=== PATIENT | male | born 1940 | race Caucasian/White ===

== ENCOUNTER 2018-07-12 08:46 | Outpatient (CLI) | payer OTHER, SELFPAY ==
[2018-07-12 10:17] LABS: CREATININE 1.05 mg/dL (0.70-1.30); Glucose 105 mg/dL (70-100); Potassium 4.3 mmol/L (3.5-5.1)
== END 2018-07-12 09:06 ==
PROVIDERS: PCP General Practice; Visit Provider General Practice
DX: I10 Essential (primary) hypertension (principal); R73.01 Impaired fasting glucose
CPT/HCPCS: 36415; 82947; 82565; 84132

== ENCOUNTER 2018-07-25 10:39 | Outpatient (CLI) | payer OTHER, SELFPAY ==
[2018-07-25 11:57] LABS: Hemoglobin A1C 5.3 % (4.5-6.2)
== END 2018-07-25 10:59 ==
PROVIDERS: PCP General Practice; Visit Provider General Practice
DX: R73.09 Other abnormal glucose (principal)
CPT/HCPCS: 36415; 83036

== ENCOUNTER 2019-01-26 08:13 | Outpatient (CLI) | payer OTHER, SELFPAY ==
[2019-01-26 10:11] LABS: Calculated LDL 99 mg/dL; Cholesterol 179 mg/dL (50-200); HDL Cholesterol 74 mg/dL (40-60); Triglyceride 34 mg/dL (30-150)
== END 2019-01-26 08:33 ==
PROVIDERS: PCP General Practice; Visit Provider General Practice
DX: I73.89 Other specified peripheral vascular diseases (principal); R73.09 Other abnormal glucose; I10 Essential (primary) hypertension
CPT/HCPCS: 36415; 80061; 83721

== ENCOUNTER 2019-06-05 10:54 | Outpatient (CLI) | payer OTHER, SELFPAY ==
[2019-06-05 12:31] LABS: HCT 38.4 % (40.0-50.0); HGB 12.8 g/dL (13.5-17.5); Mean Corp. HGB Concentration 33.3 g/dL (32.0-36.0); Mean Corpuscular Hemoglobin 32.2 pg (27.0-33.0); Mean Corpuscular Volume 96.7 fL (80-95); Platelet Count 196 x1000/uL (130-400); RBC 3.97 m/cumm (4.50-6.00); RBC Distribution Width 13.9 % (11.8-14.1)
[2019-06-05 13:59] LABS: ALT 21 U/L (16-63); AST 15 U/L (15-37); Albumin 3.4 g/dL (3.4-5.0); Alkaline Phosphatase 58 U/L (46-116); Anion Gap 7.4 mmol/L (3-11); BUN 18 mg/dL (7-18); Bilirubin, Total 0.4 mg/dL (0.2-1.0); CO2 26.6 mmol/L (21.0-32.0); CREATININE 0.99 mg/dL (0.70-1.30); Calcium 8.8 mg/dL (8.5-10.1); Chloride 108 mmol/L (98-107); Glucose 90 mg/dL (74-106); Potassium 4.9 mmol/L (3.5-5.1); Sodium 142 mmol/L (136-145); Total Protein 6.9 g/dL (6.4-8.2)
== END 2019-06-05 11:14 ==
PROVIDERS: PCP Family Medicine; Visit Provider Family Medicine
DX: I73.9 Peripheral vascular disease, unspecified (principal); I10 Essential (primary) hypertension; M35.3 Polymyalgia rheumatica; R73.03 Prediabetes
CPT/HCPCS: 36415; 80053; 85027

== ENCOUNTER 2019-11-28 01:44 | Outpatient (CLI) | payer OTHER, SELFPAY ==
[2019-11-28 09:44] LABS: Abs Immature Grans 0.04 k/cumm (0.0-0.09); Absolute Basophil Count 0.02 k/cumm (0.0-0.2); Absolute Eosinophil Count 0.14 k/cumm (0.0-0.7); Absolute Lymphocyte Count 1.77 k/cumm (1.2-3.4); Absolute Monocyte Count 0.54 k/cumm (0.11-0.7); Absolute Neutrophil Count 3.84 k/cumm (1.2-6.7); Basophils % 0.3; Eosinophils % 2.2; HCT 39.4 % (40.0-50.0); HGB 13.3 g/dL (13.5-17.5); Immature Grans % 0.6 %; Lymphocytes % 27.9; Mean Corp. HGB Concentration 33.8 g/dL (32.0-36.0); Mean Corpuscular Hemoglobin 32.4 pg (27.0-33.0); Mean Corpuscular Volume 96.1 fL (80-95); Mean Platelet Volume 9.1 fL (8.0-11.0); Monocytes % 8.5; Neutrophils % 60.5; Platelet Count 200 x1000/uL (130-400); RBC Distribution Width 13.8 % (11.8-14.1); White Blood Cell Count 6.35 k/cumm (4.4-10.8)
[2019-11-28 10:43] LABS: BUN 15 mg/dL (7-18); CREATININE 1.11 mg/dL (0.70-1.30); Calcium 8.9 mg/dL (8.5-10.1); Chloride 104 mmol/L (98-107); Glucose 107 mg/dL (74-106); Potassium 4.3 mmol/L (3.5-5.1); Sodium 138 mmol/L (136-145)
[2019-11-28 10:50] LABS: Hemoglobin A1C 5.5 % (3.8-5.6)
[2019-11-28 11:09] LABS: ESR 33 mm/hr (1-20)
== END 2019-11-28 02:04 ==
PROVIDERS: PCP Family Medicine; Visit Provider Family Medicine
DX: I10 Essential (primary) hypertension (principal); R73.03 Prediabetes; M35.3 Polymyalgia rheumatica
CPT/HCPCS: 36415; 80048; 85652; 83036; 85025

== ENCOUNTER → 2022-01-01 14:11 | Outpatient (BNVA) | payer OTHER, SELFPAY | PROVIDERS: PCP Nurse Practitioner Family; Referring Provider Nurse Practitioner Family; Visit Provider Physical Therapy Assistant | DX: L02.215 Cutaneous abscess of perineum (principal) | CPT/HCPCS: 99203 ==

== ENCOUNTER → 2022-01-06 13:28 | Outpatient (BNVA) | payer MEDICARE, SELFPAY | PROVIDERS: PCP Nurse Practitioner Family; Referring Provider Nurse Practitioner Family; Visit Provider Physical Therapy Assistant | DX: L02.215 Cutaneous abscess of perineum (principal) | CPT/HCPCS: 99214 ==

== ENCOUNTER → 2022-01-13 13:32 | Outpatient (BNVA) | payer MEDICARE, SELFPAY | PROVIDERS: PCP Nurse Practitioner Family; Referring Provider Nurse Practitioner Family; Visit Provider Physical Therapy Assistant | DX: L72.9 Follicular cyst of the skin and subcutaneous tissue, unspecified (principal); L02.215 Cutaneous abscess of perineum | CPT/HCPCS: 99213 ==

== ENCOUNTER → 2022-01-14 09:10 | Outpatient (CLI) | payer MEDICARE, SELFPAY ==
--- NOTE | 2022-01-14 08:00 | DI.US_ITS ---
Exam(s) US SOFT TISS BUTTOCK/PERINEUM EXAM: US SOFT TISS BUTTOCK/PERINEUM CLINICAL HISTORY: cyst vs. abscess vs. enlarged lymph node,L02.91. TECHNIQUE: Ultrasound was performed using standard protocol. COMPARISON: No exams were available for comparison FINDINGS: Sonographic assessment utilizing grayscale and color Doppler imaging was performed and targeted to th e area of clinical concern. The area of the palpable abnormality corresponds to an ovoid hypoechoic subcutaneous lesion measuring 1.8 by 0.3 by 1.7 cm. There is associated hyperemia. The findings are likely infectious. It does not appear to be simple fluid. IMPRESSION: Subcutaneous collection with hyperemia consistent with a small abscess. DATA REPOSITORY:
== END ==
PROVIDERS: PCP Nurse Practitioner Family; Visit Provider Physical Therapy Assistant
DX: L02.31 Cutaneous abscess of buttock (principal)
CPT/HCPCS: 76857

== ENCOUNTER → 2022-01-20 13:27 | Outpatient (BNVA) | payer MEDICARE, SELFPAY | PROVIDERS: PCP Nurse Practitioner Family; Referring Provider Nurse Practitioner Family; Visit Provider Physical Therapy Assistant | DX: L02.215 Cutaneous abscess of perineum (principal) | CPT/HCPCS: 10060 ==

== ENCOUNTER → 2022-01-28 13:31 | Outpatient (BNVA) | payer MEDICARE, SELFPAY | PROVIDERS: PCP Nurse Practitioner Family; Referring Provider Nurse Practitioner Family; Visit Provider Surgery | DX: Z48.02 Encounter for removal of sutures (principal); L02.215 Cutaneous abscess of perineum ==

== ENCOUNTER 2022-08-06 03:02 | Outpatient (CLI) | payer MEDICARE, SELFPAY ==
[2022-08-06 12:43] LABS: HCT 38.8 % (40.0-50.0); MCH 32.6 pg (27.0-33.0); MCHC 33.5 % (32.0-36.0); MCV 97 fL (80-95); MPV 10.2 fL (8.0-11.0); Platelet Count 156 10^3/uL (130-400); RBC 3.99 10^6/uL (4.36-5.78); RDW 13.3 % (11.8-14.1); RDW-SD 47.8 fL
== END 2022-08-06 03:03 | disposition home or self-care (01) ==
LOC: LOS 03:02
PROVIDERS: PCP Nurse Practitioner Family; Visit Provider Nurse Practitioner Family
DX: I82.412 Acute embolism and thrombosis of left femoral vein; Z79.01 Long term (current) use of anticoagulants
CPT/HCPCS: 36415; 85027

== ENCOUNTER 2023-02-08 02:32 | Outpatient (CLI) | payer MEDICARE, SELFPAY ==
[2023-02-09 10:59] LABS: Lyme Ab w Rflx to Lyme Confirm Negative (Negative)
[2023-02-11 12:17] LABS: Anaplasma phagocytophilum Negative (Negative); B. miyamotoi PCR Negative (Negative); Babesia divergens/MO-1 Negative (Negative); Babesia duncani Negative (Negative); Babesia microti Negative (Negative); Ehrlichia chaffeensis Negative (Negative); Ehrlichia ewingii/canis Negative (Negative); Ehrlichia muris eauclairensis Negative (Negative)
== END 2023-02-08 02:33 | disposition home or self-care (01) ==
LOC: LBO 02:32
PROVIDERS: Nurse Practitioner Family; PCP Nurse Practitioner Family; Visit Provider Nurse Practitioner Family
DX: T14.8XXA Other injury of unspecified body region, initial encounter; W57.XXXA Bitten or stung by nonvenomous insect and other nonvenomous arthropods, initial encounter
CPT/HCPCS: 36415; 87798; 86618

== ENCOUNTER 2023-09-10 02:14 | Outpatient (CLI) | payer MEDICARE, SELFPAY ==
[2023-09-10 09:29] LABS: HCT 40.1 % (40.0-50.0); HGB 13.5 g/dL (13.5-17.5); MCH 32.5 pg (27.0-33.0); MCHC 33.7 % (32.0-36.0); MCV 96 fL (80-95); MPV 9.7 fL (8.0-11.0); Platelet Count 143 10^3/uL (130-400); RBC 4.16 10^6/uL (4.36-5.78); RDW 13.8 % (11.8-14.1); RDW-SD 48.9 fL; WBC 5.59 10^3/uL (4.4-10.8)
[2023-09-10 09:59] LABS: Hemoglobin A1C 5.5 % (<5.7)
[2023-09-10 10:15] LABS: Calculated LDL 90 mg/dL (<100); Cholesterol 189 mg/dL (<200); HDL Cholesterol 93 mg/dL (40-60); Triglyceride 31 mg/dL (<150)
== END 2023-09-10 02:15 | disposition home or self-care (01) ==
LOC: LBO 02:15
PROVIDERS: PCP Nurse Practitioner Family; Visit Provider Nurse Practitioner Family
DX: I73.9 Peripheral vascular disease, unspecified (principal); D64.9 Anemia, unspecified; Z13.1 Encounter for screening for diabetes mellitus
CPT/HCPCS: 80061; 85027; 83036

== ENCOUNTER 2023-10-29 12:52 | Inpatient (IN) | payer MEDICARE, SELFPAY ==
[2023-10-29] VITALS (41 sets, daily range): BP systolic 115–176; BP diastolic 48–75; PULSE 50–97; RESP 11–28; TEMP 36–37.3; O2SAT 37–100
--- NOTE | 2023-10-29 12:30 | RT.EKG_ITS ---
APPROVED REPORT Exam: Resting ECG Reason for Exam: chest pain Patient Location: E HR:89 bpm ECG Measurements Heart Rate 89 AXIS AR 191 P 69 QRSd 111 QRS -32 QT 387 T 92 QTc 472 Conclusion Sinus rhythm...normal P axis, V-rate 60- 99 Left atrial enlargement...P, P'>60mS, <-0.15mV V1 Left axis deviation...QRS axis (-30,-90) Repol abnrm suggests ischemia, diffuse leads...ST-T neg, ant/lat/inf
[2023-10-29 13:20] LABS: Abs Immature Grans 0.04 10^3/uL (0.0-0.06); Absolute Basophil Count 0.02 10^3/uL (0.0-0.2); Absolute Eosinophil Count 0.02 10^3/uL (0.0-0.7); Absolute Lymphocyte Count 0.56 10^3/uL (1.2-3.4); Absolute Monocyte Count 0.27 10^3/uL (0.1-0.8); Absolute Neutrophil Count 5.69 10^3/uL (1.2-6.7); Basophils % 0.3 %; Eosinophils % 0.3 %; HCT 36.9 % (40.0-50.0); HGB 12.6 g/dL (13.5-17.5); Immature Grans % 0.6 %; Lymphocytes % 8.5 %; MCH 32.4 pg (27.0-33.0); MCHC 34.1 % (32.0-36.0); MCV 95 fL (80-95); MPV 9.7 fL (8.0-11.0); Monocytes % 4.1 %; Neutrophils % 86.2 %; Platelet Count 157 10^3/uL (130-400); RBC 3.89 10^6/uL (4.36-5.78); RDW 13.7 % (11.8-14.1); RDW-SD 47.3 fL
[2023-10-29 13:28] LABS: ALT 27 U/L (16-63); AST 22 U/L (15-37); Albumin 3.5 g/dL (3.4-5.0); Alkaline Phosphatase 183 U/L (46-116); Anion Gap 11.5 mmol/L (3-11); BUN 13 mg/dL (7-18); Bilirubin, Total 0.7 mg/dL (0.2-1.0); CO2 21.5 mmol/L (21.0-32.0); Calcium 8.8 mg/dL (8.5-10.1); Chloride 102 mmol/L (98-107); Estimated GFR 75.14 (mL/min/1.73m2); Glucose 114 mg/dL (74-106); Magnesium 1.8 mg/dL (1.8-2.4); Potassium 4.2 mmol/L (3.5-5.1); Sodium 135 mmol/L (136-145)
[2023-10-29 13:29] LABS: Troponin I 128 ng/L (< or =60)
--- NOTE | 2023-10-29 14:00 | DI.CT_ITS ---
Exam(s) CT CHEST PE CTA EXAM: CT CHEST PE CTA CLINICAL HISTORY: shortness of breath. TECHNIQUE: Imaging Protocol: Axial CT angiography was performed with multi-slice acquisition and mu lti-planar and/or 3D reconstructions. CONTRAST MATERIAL: Intravenous: Omnipaque 350 contrast volume:85 mL COMPARISON: CT ABD PELVIS WITH CONTRAST from 06/28/2016 FINDINGS: Tracheobronchial tree: Patent where visualized. Pulmonary parenchyma: No focal consolidating infiltrates are seen. There is mild thickening of the i nterstitium particularly peripherally. This may represent interstitial edema or pneumonitis. No arc hitectural distortion. Pulmonary Arteries: There are filling defects in branches of the pulmonary artery to the right lower lobe (series 7, image 357). No saddle embolus is seen. Mediastinum and Kami: No dominant adenopathy or fluid collection. The esophagus is unremarkable. Visualized thyroid gland: Unremarkable. Pleura: No pneumothorax. Mild pleural thickening or tiny pleural effusions are seen bilaterally. Heart: Cardiomegaly. RV to LV ratio is less than 1. Coronary artery calcification is present. No pe ricardial effusion. Aorta: Thoracic aorta non-dilated. No evidence of dissection. Atherosclerotic calcification is presen t. Upper abdomen: Stable hepatic cyst. Soft tissues: Unremarkable. Bones: Within normal limits for the patient's age.There are old left rib fractures. There is a scler otic focus in the T6 vertebral body. IMPRESSION: 1. Pulmonary embolism in a branch of the right lower lobe. No evidence of heart strain. 2. Mild interstitial thickening in the lungs which may represent interstitial edema or pneumonitis. Please correlate clinically. 3. Nonspecific sclerotic focus in the T6 vertebral body. If there is a history of or concern for can cer, bone scan should be considered for further evaluation. 4. Findings were discussed with Dr. Shi at 3:29 p.m. on 10/29/2023. RADIATION DOSE DELIVERED: 394.27mGy.cm Total DLP DATA REPOSITORY: All CT scans at this facility are submitted to the National Radiology Data Registry (NRDR) Dose Index Registry (DIR) with the [employer] (A[employer]). RADIATION OPTIMIZATION: All CT scans at this facility use at least one of these dose optimization te chniques: automated exposure control; mA and/or kV adjustment per patient size (includes targeted exa ms where dose is matched to clinical indication); or iterative reconstruction.
--- NOTE | 2023-10-29 14:18 | W.ED.GENAD ---
Discharge Plan Disposition Patient Disposition: Admit to [facility] Condition: Critical Discharge Details Clinical Impression: Acute non-ST elevation myocardial infarction (NSTEMI), Pulmonary embolism Admit Date/Time: 10/29/23 16:52 Admit Provider: Js Jameson Attending Provider: Js Jameson Primary Care Provider: Natanael Silverio ED Provider: Stefan Shi General Mode of arrival: ambulatory. Date/Time Provider Initiated Documentation: 10/29/23 13:01. Limitations to Documentation: no limitations. Information obtained by: patient. HPI Narrative: 83-year-old male with history of PMR, hypertension, DVT, on Eliquis, family history of early coronary artery disease, here with chief complaint of shortness of breath. Patient notes he has had intermittent chest tightness for a couple days, worse today. He describes it as a tightness. He had associated shortness of breath with dyspnea on exertion and presyncope. He states he feels out of whack today. Patient notes chest discomfort has resolved at this point. He has no leg swelling or calf pain. No abdominal pain. Related Data Home Medications Medication Instructions Recorded Confirmed omega-3 fatty acids-fish oil 360 1,200 mg PO BID 11/15/13 10/29/23 mg-1,200 mg capsule vitamins A,C,X-stxa-exwpmw 2,148 2 tab PO BID 09/01/21 10/29/23 mcg-113 mg-45 mg-17.4 mg tablet doxazosin 1 mg tablet 0.5 mg (1/2 x 1 mg) PO BID #90 tabs 04/07/23 10/29/23 allopurinol 300 mg tablet 300 mg PO DAILY #90 tabs 05/17/23 10/29/23 enalapril maleate 20 mg tablet 20 mg PO BID #180 tabs 06/30/23 10/29/23 apixaban 2.5 mg tablet (Eliquis) 2.5 mg PO BID #180 tabs 07/07/23 10/29/23 prednisone 1 mg tablet 4 mg (4 x 1 mg) PO DAILY #360 tabs 08/20/23 10/29/23 Previous Rx's Medication Instructions Recorded doxazosin 1 mg tablet 0.5 mg (1/2 x 1 mg) PO BID #90 tabs 04/07/23 allopurinol 300 mg tablet 300 mg PO DAILY #90 tabs 05/17/23 enalapril maleate 20 mg tablet 20 mg PO BID #180 tabs 06/30/23 apixaban 2.5 mg tablet (Eliquis) 2.5 mg PO BID #180 tabs 07/07/23 prednisone 1 mg tablet 4 mg (4 x 1 mg) PO DAILY #360 tabs 08/20/23 Allergies Allergy/AdvReac Type Severity Reaction Status Date / Time No Known Allergies Allergy Verified 10/29/23 13:22 General Stated Complaint: Dizzy/Sync RITCHIE: 3 Review of Systems All systems reviewed & are unremarkable except as noted in HPI and below Constitutional Constitutional: Denies fever(s) Cardiovascular Cardiovascular: Reports as per HPI Respiratory Respiratory: Reports as per HPI Exam Const General: cooperative and no acute distress HENMT Mouth: moist mucous membranes Eyes Conjunctivae: normal conjunctivae Sclera: normal sclerae Neck Neck: trachea midline and supple Resp Auscultation: clear to auscultation bilaterally, no rales, no rhonchi and no wheezes Cardio Rate: regular rate and not tachycardic Rhythm: regular rhythm GI Palpation: soft, not firm, no guarding, no masses, not rigid and nontender Skin General skin exam: no rashes or lesions noted Neuro General: patient alert, patient awake, patient oriented x3 and tone normal Extrem General: no calf tenderness and no edema Psych Appearance: grossly normal Mental Status: mental status grossly normal Speech and Movement: speech and movement normal Course Vital Signs Vital signs: Vital Signs Temperature 36.6 C 10/29/23 12:53 Pulse 86 10/29/23 12:53 Respiratory Rate 16 10/29/23 12:53 Blood Pressure 172/75 H 10/29/23 12:53 Pulse Oximetry 99 10/29/23 12:53 Temperature 36.6 C 10/29/23 12:53 Temperature Source Tympanic 10/29/23 12:53 Pulse 70 10/29/23 13:46 Pulse 78 10/29/23 13:50 Respiratory Rate 15 10/29/23 13:50 Respiratory Effort Short of Breath 10/29/23 13:12 Respiratory Depth Normal 10/29/23 13:12 Respiratory Pattern Normal 10/29/23 13:12 Blood Pressure 154/56 H 10/29/23 13:46 Blood Pressure Mean 93 10/29/23 13:46 Blood Pressure Position Sitting 10/29/23 12:53 Pulse Oximetry 97 10/29/23 13:50 Oxygen Delivery Method Room Air 10/29/23 12:53 Oxygen Flow Rate 0 10/29/23 12:53 Pain Level 3 10/29/23 12:53 Lab/Test Results Lab/Test Results: Laboratory Tests Range/Units 10/29/23 13:00 WBC (4.4-10.8) 10^3/uL 6.60 RBC (4.36-5.78) 10^6/uL 3.89 L Hgb (13.5-17.5) g/dL 12.6 L Hct (40.0-50.0) % 36.9 L MCV (80-95) fL 95 MCH (27.0-33.0) pg 32.4 MCHC (32.0-36.0) % 34.1 RDW (11.8-14.1) % 13.7 Plt Count (130-400) 10^3/uL 157 MPV (8.0-11.0) fL 9.7 Immature Gran % % 0.6 Neutrophils % % 86.2 Lymphocytes % % 8.5 Monocytes % % 4.1 Eosinophils % % 0.3 Basophils % % 0.3 Nucleated RBC % (0.0-0.3) % 0.0 Absolute Neutrophils (1.2-6.7) 10^3/uL 5.69 Absolute Lymphocytes (1.2-3.4) 10^3/uL 0.56 L Absolute Monocytes (0.1-0.8) 10^3/uL 0.27 Absolute Eosinophils (0.0-0.7) 10^3/uL 0.02 Absolute Basophils (0.0-0.2) 10^3/uL 0.02 Sodium (136-145) mmol/L 135 L Potassium (3.5-5.1) mmol/L 4.2 Chloride (98-107) mmol/L 102 Carbon Dioxide (21.0-32.0) mmol/L 21.5 Anion Gap (3-11) mmol/L 11.5 H BUN (7-18) mg/dL 13 Creatinine (0.70-1.30) mg/dL 1.0 Est GFR (CKD-EPI 2020) (mL/min/1.73m2) 75.14 Glucose (74-106) mg/dL 114 H Calcium (8.5-10.1) mg/dL 8.8 Magnesium (1.8-2.4) mg/dL 1.8 Total Bilirubin (0.2-1.0) mg/dL 0.7 AST (15-37) U/L 22 ALT (16-63) U/L 27 Alkaline Phosphatase (46-116) U/L 183 H Troponin I (< or =60) ng/L 128 H* Total Protein (6.4-8.2) g/dL 7.0 Albumin (3.4-5.0) g/dL 3.5 Medical Decision Making 1425 -- 83-year-old male with history of PMR, DVT on Eliquis, hypertension, family history of coronary artery disease, here with chest discomfort, dyspnea on exertion and presyncope today. Symptoms now resolved. Has had intermittent symptoms over the past few days. Patient is saturating well and in no respiratory distress. He is hypertensive. Screening EKG was reviewed and interpreted by me: Please report, sinus rhythm, left atrial enlargement, left axis deviation, concern for ST depression laterally. ST depression is new compared to prior EKG on record from 2018. Concern for ACS. Initial troponin elevated at 128. Patient is currently anticoagulated. He does not have pain at this time. Consider ACS versus pulmonary embolism versus arrhythmia. Plan to obtain CT of the chest given history and symptoms. Plan to trend troponin. 1545 --CT chest was interpreted by radiology: 1. Pulmonary embolism in a branch of the right lower lobe. No evidence of heart strain. 2. Mild interstitial thickening in the lungs which may represent interstitial edema or pneumonitis. Please correlate clinically. 3. Nonspecific sclerotic focus in the T6 vertebral body. If there is a history of or concern for cancer, bone scan should be considered for further evaluation. 4. Findings were discussed with Dr. Shi at 3:29 p.m. on 10/29/2023. Repeat EKG shows worsening ST depression laterally and now extending into I, aVL and V3. 1600--I contacted [facility] [place] to request transfer and was notified by transfer nurse that department is unable to accept patient today as no capacity. I contacted [facility] transfer center to request transfer and awaiting callback 1604 --repeat troponin 332. Plan to initiate heparin, no bolus, and aspirin. 1620 --I spoke with Dr. Slaughter at [facility], discussed ED presentation and course, he agrees with current treatment plan, he will accept the patient in transfer, he notes currently they are at capacity but will list as urgent and expect to be transferred within a day. 1635 --[facility] return call noting that they now could not accept the patient in transfer due to capacity. I have called [facility] [place] back to request transfer and awaiting callback. -- I spoke with Dr. Jameson, discussed ED presentation course, he will admit the patient and request that accepting physician to be identified. Awaiting callback from [facility]. Lab Data Lab results reviewed: Yes I reviewed the patient's lab results. Labs: Laboratory Tests Range/Units 10/29/23 10/29/23 13:00 15:40 WBC (4.4-10.8) 10^3/uL 6.60 RBC (4.36-5.78) 10^6/uL 3.89 L Hgb (13.5-17.5) g/dL 12.6 L Hct (40.0-50.0) % 36.9 L MCV (80-95) fL 95 MCH (27.0-33.0) pg 32.4 MCHC (32.0-36.0) % 34.1 RDW (11.8-14.1) % 13.7 Plt Count (130-400) 10^3/uL 157 MPV (8.0-11.0) fL 9.7 Immature Gran % % 0.6 Neutrophils % % 86.2 Lymphocytes % % 8.5 Monocytes % % 4.1 Eosinophils % % 0.3 Basophils % % 0.3 Nucleated RBC % (0.0-0.3) % 0.0 Absolute Neutrophils (1.2-6.7) 10^3/uL 5.69 Absolute Lymphocytes (1.2-3.4) 10^3/uL 0.56 L Absolute Monocytes (0.1-0.8) 10^3/uL 0.27 Absolute Eosinophils (0.0-0.7) 10^3/uL 0.02 Absolute Basophils (0.0-0.2) 10^3/uL 0.02 Sodium (136-145) mmol/L 135 L Potassium (3.5-5.1) mmol/L 4.2 Chloride (98-107) mmol/L 102 Carbon Dioxide (21.0-32.0) mmol/L 21.5 Anion Gap (3-11) mmol/L 11.5 H BUN (7-18) mg/dL 13 Creatinine (0.70-1.30) mg/dL 1.0 Est GFR (CKD-EPI 2020) (mL/min/1.73m2) 75.14 Glucose (74-106) mg/dL 114 H Calcium (8.5-10.1) mg/dL 8.8 Magnesium (1.8-2.4) mg/dL 1.8 Total Bilirubin (0.2-1.0) mg/dL 0.7 AST (15-37) U/L 22 ALT (16-63) U/L 27 Alkaline Phosphatase (46-116) U/L 183 H Troponin I (< or =60) ng/L 128 H* 332 H* Total Protein (6.4-8.2) g/dL 7.0 Albumin (3.4-5.0) g/dL 3.5 Quality:SDOH Health Related Social Needs: No Data to Display Critical Care Time Critical Care Time Critical Care Time: Yes Total Critical Care Time: 40 Attestation: I spent greater than 40 minutes addressing this patient's immediate life threats. Please see MDM section of note. This time was spent engaged in work directly related to the patient's care, exclusive of separate procedures, and failure to initiate these interventions would have likely resulted in clinically significant or life threatening deterioration in the patient's condition. PFSH All Active Problems (Updated 10/29/23 @ 16:22 by Stefan Shi MD) Pulmonary embolism (Chronic) Acute non-ST elevation myocardial infarction (NSTEMI) (Acute) Right foot pain (Acute) Anemia (Chronic) Right hip pain (Acute) Chronic anticoagulation (Acute) Ventral hernia (Acute) Skin lesions, generalized (Acute) Liver palpable (Acute) US negative in 2006 Peripheral artery disease (Acute) asymptomatic Recurrent deep vein thrombosis (DVT) (Acute) PMR (polymyalgia rheumatica) (Acute) Family history of early CAD (Acute) Peripheral neuropathy (Acute) Medical History Neck mass (10/07/15) Peripheral vascular disease Surgical History S/P right knee arthroscopy S/P appendectomy Incision & Drainage, Abscess or Hematoma Family History Mother , age 85 Heart disease Father , age 63 Heart disease Sister Hypertension Sister No problems noted. Brother Hypertension Brother Hypertension Brother Hypertension Alcohol abuse Depression Son No problems noted. Son , age 35 Alcohol abuse Substance abuse Social History (Updated 09/10/23 @ 18:10 by Marilee Cabral) Smoking/Tobacco Use Status: Current-Occasional Tobacco Type: cigars Tobacco: How many years used: 10 Quit status: has quit before Second Hand Exposure: No Smoking risk assessment performed?: Yes Alcohol Intake: current Alcohol Intake frequency: a few times a week Alcohol type: beer Drug use: Never Substance use type: does not use Counseling given: No Counseling provided: none Caregiver/Support person: No Household members: spouse Housing: house Communication Needs: None Do you need help understanding health information?: Rarely Pets and animals: No Sexually active: No Do you think of yourself as: straight/heterosexual Current gender identity: male What is your relationship status?: How often do you talk on the phone with friends or family?: twice per week How often do you get together with friends or relatives?: decline to answer How often do you attend orthodoxy or druze services?: decline to answer Do you belong to any clubs or organized social groups?: yes Panel score (0-1 are the most socially isolated patients): 2 What type of physical activity do you participate in: walking Duration: 30-45 minutes/day Frequency: daily Odette/Orthodoxy: No preference Special odette needs: No Seatbelt use: sometimes Helmet use: No Drive intox or ride w/intox courtesy van driver: No Do you feel safe at home: Yes Do you feel safe in your relationship?: Yes PAWSS Have you Been Recently Intoxicated or Drunk Within the Last 30 days?: No Have you Ever Experienced Previous Episodes of Alcohol Withdrawal?: No Have you ever Experienced Withdrawal Seizures?: No Have you ever Experienced Delirium Tremens(DT)s?: No Have you ever undergone Alcohol Rehabilitation Treatment (i.e, inpt ot outpatient treatment programs)?: No Have you ever Experienced Blackouts?: No Have you ever Combined Alcohol with other Downers within the last 90 days?: No Have you ever Combined Alcohol with any other Substance of Abuse during the last 90 days?: No Positive Blood Alcohol level on Presentation? [PCS.BAL]: Unable to Obtain Evidence of Increased Autonomic Activity (i.e. HR>120, tremor, sweating, agitation, nausea)?: No Result: 0
[2023-10-29] MEDS: Normal Saline - Diluent 50 ML VIAL IJ (14:28)
[2023-10-29] MEDS: Omnipaque 350 MG/ML 500 ML BTL-Imaging package 85 ML IJ (14:29)
--- NOTE | 2023-10-29 15:30 | RT.EKG_ITS ---
APPROVED REPORT Exam: Resting ECG Reason for Exam: Repeat Patient Location: E HR:88 bpm ECG Measurements Heart Rate 88 AXIS WI 183 P 77 QRSd 111 QRS -19 QT 381 T 117 QTc 461 Conclusion Sinus rhythm...normal P axis, V-rate 60- 99 Left atrial enlargement...P, P'>60mS, <-0.15mV V1 Low voltage, extremity leads...all extremity leads <0.5mV Repol abnrm, prob ischemia, anterolateral lds...ST dep, T neg, I aVL V2-V6
[2023-10-29 16:03] LABS: Troponin I 332 ng/L (< or =60)
[2023-10-29] MEDS: Aspirin 325 MG TAB PO (16:03)
[2023-10-29] MEDS: Heparin in 0.45% NaCl 25,000 UNIT/250 ML BAG 10 UNIT IV (16:03)
[2023-10-29 16:34] LABS: PTT Activated 26.5 sec (23.6-32.8)
--- NOTE | 2023-10-29 16:53 | HPE_ITS ---
Date of service: 10/29/23 Time of Service: 16:53 Assessment and Plan Assessment and plan (1) Acute non-ST elevation myocardial infarction (NSTEMI): Status: Acute Assessment and plan: - Patient presented with exertional shortness of breath and chest pain that was ultimately determined to be due to an NSTEMI -Patient had ST depressions in lateral leads, and initial troponin of about 100 that increased to 332 -Patient was started on heparin drip and given aspirin loading dose, will continue heparin and daily aspirin -Will also start every 6 hour Lopressor -Patient has been accepted to [facility] for tomorrow 10/30/2023 for left heart catheterization -N.p.o. at midnight (2) Pulmonary embolism: Status: Chronic Assessment and plan: -found on CT PE -on heparin drip for NSTEMI as noted above -without signs of right heart strain -not requiring supplemental oxygen at this time (3) PMR (polymyalgia rheumatica): Status: Acute Assessment and plan: - Hold home oral regimen (4) HTN (hypertension): Status: None Assessment and plan: - Hold home oral regimen Qualifiers: Hypertension type: primary hypertension Qualified Code(s): I10 - Essential (primary) hypertension (5) Gout: Status: None Assessment and plan: - Hold home oral regimen (6) Chronic anticoagulation: Status: Acute Assessment and plan: -hold eliquis while on heparin drip History of Present Illness History of Present Illness Chief Complaint: chest pain Narrative: 83-year-old male with a past medical history of PMR, hypertension, DVT on Eliquis, family history of coronary artery disease who initially presented with complaints of chest pain or shortness of breath. Patient states that over the last few days he has had intermittent chest tightness and shortness of breath that was particularly worse this morning prior to presenting to the emergency department. He said that he had associated shortness of breath with exertional dyspnea and lightheadedness and dizziness almost feel like he was going to pass out. However, he states that his chest pain had resolved since arriving to the emergency department. He denies any headache, back pain, neck or arm pain, nausea or vomiting. In the emergency department the patient was noted as having normal vital signs, normal CBC and CMP however, EKG showed lateral ST depressions that were new as compared to EKG from 2018. Additionally, patient had initially elevated troponin level of 128. At which time given concern for PE patient had CT a chest PE protocol that did show right sided small PE. Additionally, repeat EKG showed worsening ST depressions laterally extending into 1, aVL and V3. Emergency room physician contacted at [facility] for consideration of transfer for left heart catheterization for which they said they would not be able to except the patient until tomorrow 10/30/2023. Emergency room physician then reached out to [facility] who said they would not be able to except the patient for transfer. At this time emergency room physician and is awaiting callback from [facility] to ensure that patient is on the wait list and will be excepted for transfer for left heart catheterization tomorrow 10/30/2023. It was at this time emergency room physician gave loading dose of aspirin and initiated heparin drip and call hospitalist for admission for patient with an NSTEMI and pulmonary embolus. Review of Systems All systems reviewed & are unremarkable except as noted in HPI and below PFSH All Active Problems (Updated 10/29/23 @ 16:22 by Stefan Shi MD) Pulmonary embolism (Chronic) Acute non-ST elevation myocardial infarction (NSTEMI) (Acute) Right foot pain (Acute) Anemia (Chronic) Right hip pain (Acute) Chronic anticoagulation (Acute) Ventral hernia (Acute) Skin lesions, generalized (Acute) Liver palpable (Acute) US negative in 2006 Peripheral artery disease (Acute) asymptomatic Recurrent deep vein thrombosis (DVT) (Acute) PMR (polymyalgia rheumatica) (Acute) Family history of early CAD (Acute) Peripheral neuropathy (Acute) Medical History Neck mass (10/07/15) Peripheral vascular disease Surgical History S/P right knee arthroscopy S/P appendectomy Incision & Drainage, Abscess or Hematoma Family History Mother , age 85 Heart disease Father , age 63 Heart disease Sister Hypertension Sister No problems noted. Brother Hypertension Brother Hypertension Brother Hypertension Alcohol abuse Depression Son No problems noted. Son , age 35 Alcohol abuse Substance abuse Social History (Updated 09/10/23 @ 18:10 by Marilee Cabral) Smoking/Tobacco Use Status: Current-Occasional Tobacco Type: cigars Tobacco: How many years used: 10 Quit status: has quit before Second Hand Exposure: No Smoking risk assessment performed?: Yes Alcohol Intake: current Alcohol Intake frequency: a few times a week Alcohol type: beer Drug use: Never Substance use type: does not use Counseling given: No Counseling provided: none Caregiver/Support person: No Household members: spouse Housing: house Communication Needs: None Do you need help understanding health information?: Rarely Pets and animals: No Sexually active: No Do you think of yourself as: straight/heterosexual Current gender identity: male What is your relationship status?: How often do you talk on the phone with friends or family?: twice per week How often do you get together with friends or relatives?: decline to answer How often do you attend hoahaoism or episcopal services?: decline to answer Do you belong to any clubs or organized social groups?: yes Panel score (0-1 are the most socially isolated patients): 2 What type of physical activity do you participate in: walking Duration: 30-45 minutes/day Frequency: daily Odette/Jew: No preference Special odette needs: No Seatbelt use: sometimes Helmet use: No Drive intox or ride w/intox city bus driver: No Do you feel safe at home: Yes Do you feel safe in your relationship?: Yes Meds Allergies and Home Medications Allergies Allergy/AdvReac Type Severity Reaction Status Date / Time No Known Allergies Allergy Verified 10/29/23 13:22 Home Medications Medication Instructions Recorded Confirmed Type omega-3 fatty acids-fish oil 360 1,200 mg PO BID 11/15/13 10/29/23 History mg-1,200 mg capsule vitamins A,C,D-txqm-ltphmd 2,148 2 tab PO BID 09/01/21 10/29/23 History mcg-113 mg-45 mg-17.4 mg tablet doxazosin 1 mg tablet 0.5 mg (1/2 x 1 mg) PO BID #90 tabs 04/07/23 10/29/23 Rx allopurinol 300 mg tablet 300 mg PO DAILY #90 tabs 05/17/23 10/29/23 Rx enalapril maleate 20 mg tablet 20 mg PO BID #180 tabs 01/17/24 05/17/24 Rx apixaban 2.5 mg tablet (Eliquis) 2.5 mg PO BID #180 tabs 07/07/23 10/29/23 Rx prednisone 1 mg tablet 4 mg (4 x 1 mg) PO DAILY #360 tabs 08/20/23 10/29/23 Rx Exam Narrative Exam Narrative: Well-appearing gentleman laying in bed in no acute distress, ANO x 4, heart rate regular rhythm, lungs clear to auscultation bilaterally, abdomen soft, nontender, nondistended Results Labs 10/29/23 13:00 10/29/23 13:00 Labs: Laboratory Results - last 24 hr 10/29/23 10/29/23 13:00 15:40 WBC 6.60 RBC 3.89 L Hgb 12.6 L Hct 36.9 L MCV 95 MCH 32.4 MCHC 34.1 RDW 13.7 Plt Count 157 MPV 9.7 Immature Gran % 0.6 Neutrophils % 86.2 Lymphocytes % 8.5 Monocytes % 4.1 Eosinophils % 0.3 Basophils % 0.3 Nucleated RBC % 0.0 Absolute Neutrophils 5.69 Absolute Lymphocytes 0.56 L Absolute Monocytes 0.27 Absolute Eosinophils 0.02 Absolute Basophils 0.02 APTT 26.5 Sodium 135 L Potassium 4.2 Chloride 102 Carbon Dioxide 21.5 Anion Gap 11.5 H BUN 13 Creatinine 1.0 Est GFR (CKD-EPI 2020) 75.14 Glucose 114 H Calcium 8.8 Magnesium 1.8 Total Bilirubin 0.7 AST 22 ALT 27 Alkaline Phosphatase 183 H Troponin I 128 H* 332 H* Total Protein 7.0 Albumin 3.5 Last Vital Signs Temp 97.9 F 10/29/23 12:53 Pulse 89 10/29/23 16:30 Resp 15 10/29/23 16:31 BP 174/73 H 10/29/23 16:30 Pulse Ox 95 10/29/23 16:31 PAWSS Have you Been Recently Intoxicated or Drunk Within the Last 30 days?: No Have you Ever Experienced Previous Episodes of Alcohol Withdrawal?: No Have you ever Experienced Withdrawal Seizures?: No Have you ever Experienced Delirium Tremens(DT)s?: No Have you ever undergone Alcohol Rehabilitation Treatment (i.e, inpt ot outpatient treatment programs)?: No Have you ever Experienced Blackouts?: No Have you ever Combined Alcohol with other Downers within the last 90 days?: No Have you ever Combined Alcohol with any other Substance of Abuse during the last 90 days?: No Positive Blood Alcohol level on Presentation? [PCS.BAL]: Unable to Obtain Evidence of Increased Autonomic Activity (i.e. HR>120, tremor, sweating, agitation, nausea)?: No Result: 0 Time Spent Time spent with Patient: >75 minutes Time was spent: preparing to see the patient(eg.review tests), obtaining and/or reviewing separately otained hiistory, ordering medications,tests, procedures, referring, communicating with other health inspector health care facilities, indepentently interpreting results, counseling the patient and care coordination
[2023-10-29] MEDS: Metoprolol 12.5 MG TAB PO ×2 (18:27→23:33)
[2023-10-29] MEDS: Doxazosin 1 MG TAB 0.5 MG PO (19:25)
[2023-10-29] MEDS: Normal Saline Flush 10 ML SYR IVP ×2 (19:27→19:48)
--- NOTE | 2023-10-29 19:27 | ED.PROG_ITS ---
Date of service: 10/29/23 Time of Service: 19:27 Medical Decision Making Patient admitted to [facility] for presumptive NSTEMI as well as PE. Discussed case with [facility] and cardiology team due to bed availability patient could not be accepted tonight however they have posted patient for transfer tomorrow when bed opens up excepting physician Dr. Jensen. Recommending heparin and Plavix. Will relay message to inpatient team. Quality:SDOH Health Related Social Needs: No Data to Display Discharge Plan Disposition Patient Disposition: Admit to [facility] Condition: Critical Discharge Details Clinical Impression: Acute non-ST elevation myocardial infarction (NSTEMI), Pulmonary embolism Admit Date/Time: 10/29/23 16:52 Admit Provider: Js Jameson Attending Provider: Js Jameson Primary Care Provider: Natanael Silverio ED Provider: Stefan Shi
[2023-10-29] MEDS: Clopidogrel 300 MG TAB PO (21:03)
[2023-10-29 22:20] LABS: PTT Activated 44.4 sec (23.6-32.8)
[2023-10-30 02:57] VITALS: BP 153/65; PULSE 68; RESP 18; TEMP 37.1; O2SAT 95
[2023-10-30] MEDS: Acetaminophen 325 MG TAB PO (03:04)
[2023-10-30 05:39] LABS: HCT 36.5 % (40.0-50.0); HGB 12.4 g/dL (13.5-17.5); MCH 32.4 pg (27.0-33.0); MCV 95 fL (80-95); MPV 9.7 fL (8.0-11.0); Platelet Count 152 10^3/uL (130-400); RBC 3.83 10^6/uL (4.36-5.78); RDW 13.6 % (11.8-14.1); RDW-SD 47.7 fL; WBC 7.81 10^3/uL (4.4-10.8)
[2023-10-30 05:48] LABS: BUN 14 mg/dL (7-18); Calcium 8.7 mg/dL (8.5-10.1); Chloride 101 mmol/L (98-107); Estimated GFR 75.14 (mL/min/1.73m2); Glucose 119 mg/dL (74-106); Magnesium 1.7 mg/dL (1.8-2.4); Potassium 4.2 mmol/L (3.5-5.1); Sodium 135 mmol/L (136-145)
[2023-10-30] MEDS: Metoprolol 12.5 MG TAB PO ×2 (05:55→11:49)
[2023-10-30 05:57] VITALS: BP 141/60; PULSE 68; RESP 18; TEMP 37.2; O2SAT 96
[2023-10-30 06:21] LABS: PTT Activated 101.4 sec (23.6-32.8)
[2023-10-30 07:15] VITALS: BP 136/58; PULSE 57; RESP 16; TEMP 36.1; O2SAT 98
[2023-10-30] MEDS: Clopidogrel 75 MG TAB PO (08:07)
[2023-10-30] MEDS: Doxazosin 1 MG TAB 0.5 MG PO (08:07)
--- NOTE | 2023-10-30 10:42 | PDOC.CMIN ---
Date of service: 10/30/23 Time of Service: 10:42 Care Management Initial Assmt Initial Assessment REASON FOR HOSPITALIZATION:: NSTEMI PREVIOUS FUNCTIONAL STATUS/SOCIAL/FAMILY SUPPORTS:: Akira lives in [place] with his Jami CURRENT FUNCTIONAL STATUS:: Akira [place] [facility] [place] CM was able to meet with him. Information obtained from chart review and discussion with staff and providers. ADVANCE DIRECTIVES:: Has DPOA Jami Wilder with Kevin Wilder as alternate Has patient been provided with info about the portal/API?: Yes Did the patient sign up for the portal?: Yes CODE STATUS:: Full Code INSURANCE COVERAGE / FINANCIAL ISSUES:: [employer] Medicare Replacement PRIMARY CARE PHYSICIAN:: Natanael Sliverio POTENTIAL DISCHARGE NEEDS:: to be determined by [facility] providers PATIENT/FAMILY EDUCATION NEEDS:: patient to be transferred [place] [facility] [place]ization TRANSPORTATION:: via EMS coordinated by nursing timber supervisor PLAN:: Akira will be transferred [place] [facility] [place] a cardiac catheterization at some point today when a bed becomes available. He will transport via EMS coordinated by nursing timber supervisor. CM will follow. PFSH All Active Problems (Updated 10/29/23 @ 16:22 by Stefan Shi MD) Pulmonary embolism (Chronic) Acute non-ST elevation myocardial infarction (NSTEMI) (Acute) Right foot pain (Acute) Anemia (Chronic) Right hip pain (Acute) Chronic anticoagulation (Acute) Ventral hernia (Acute) Skin lesions, generalized (Acute) Liver palpable (Acute) US negative in 2006 Peripheral artery disease (Acute) asymptomatic Recurrent deep vein thrombosis (DVT) (Acute) PMR (polymyalgia rheumatica) (Acute) Family history of early CAD (Acute) Peripheral neuropathy (Acute) Medical History Neck mass (10/07/15) Peripheral vascular disease Surgical History S/P right knee arthroscopy S/P appendectomy Incision & Drainage, Abscess or Hematoma Family History Mother , age 85 Heart disease Father , age 63 Heart disease Sister Hypertension Sister No problems noted. Brother Hypertension Brother Hypertension Brother Hypertension Alcohol abuse Depression Son No problems noted. Son , age 35 Alcohol abuse Substance abuse Social History (Updated 09/10/23 @ 18:10 by Marilee Cabral) Smoking/Tobacco Use Status: Current-Occasional Tobacco Type: cigars Tobacco: How many years used: 10 Quit status: has quit before Second Hand Exposure: No Smoking risk assessment performed?: Yes Alcohol Intake: current Alcohol Intake frequency: a few times a week Alcohol type: beer Drug use: Never Substance use type: does not use Counseling given: No Counseling provided: none Caregiver/Support person: No Household members: spouse Housing: house Communication Needs: None Do you need help understanding health information?: Rarely Pets and animals: No Sexually active: No Do you think of yourself as: straight/heterosexual Current gender identity: male What is your relationship status?: How often do you talk on the phone with friends or family?: twice per week How often do you get together with friends or relatives?: decline to answer How often do you attend episcopal or jainism services?: decline to answer Do you belong to any clubs or organized social groups?: yes Panel score (0-1 are the most socially isolated patients): 2 What type of physical activity do you participate in: walking Duration: 30-45 minutes/day Frequency: daily Odette/Rastafari: No preference Special odette needs: No Seatbelt use: sometimes Helmet use: No Drive intox or ride w/intox regional otr company driver: No Do you feel safe at home: Yes Do you feel safe in your relationship?: Yes SDOH(Care Management) Screening Will the Patient Participate in the Screening?: Yes Do you worry about having a steady place to live?: no Problems where you live: no known problems In the past 12 months, have you had to go without electric, gas, oil or water in your home?: no Have you or anyone in your house had to go without enough food to eat?: no Has lack of transportation kept you from medical appointments or from doing things needed for daily living?: no Has anyone in your support network made you feel unsafe for any reason?: no
[2023-10-30 11:42] VITALS: BP 137/63; PULSE 66; RESP 20; TEMP 37.2; O2SAT 94
[2023-10-30] MEDS: Allopurinol 300 MG TAB PO (11:48)
--- NOTE | 2023-10-30 12:08 | W.PM.DS.N ---
Date of service: 10/30/23 Time of Service: 12:08 DS: Diagnosis Discharge Diagnosis (1) Acute non-ST elevation myocardial infarction (NSTEMI): Status: Acute Asessment and Plan: - Patient presented with exertional shortness of breath and chest pain that was ultimately determined to be due to an NSTEMI -Patient had ST depressions in lateral leads, and initial troponin of about 100 that increased to 332 -Patient was started on heparin drip and given aspirin loading dose, will continue heparin and daily aspirin -Will also start every 6 hour Lopressor -Patient has been accepted to [facility] left heart catheterization -has been NPO since midnight -plavix loaded upon admission (2) Pulmonary embolism: Status: Chronic Asessment and Plan: -found on CT PE -on heparin drip for NSTEMI as noted above -without signs of right heart strain -not requiring supplemental oxygen at this time (3) PMR (polymyalgia rheumatica): Status: Acute (4) HTN (hypertension): Status: None (5) Gout: Status: None (6) Chronic anticoagulation: Status: Acute Discharge Plan Disposition Patient Disposition: Transfer-Acute Inpatient Care Specific Acute In Facility: [facility] Condition: Good Discharge Details Reason For Visit: NSTEMI, PE Admit Date/Time: 10/29/23 16:52 Admit Provider: Js Jameson Attending Provider: Js Jameson Primary Care Provider: Natanael Silverio Hospital Course Hospital Course: Patient presented with chest pain and exertional shortness of breath and was ultimately determined to be sick secondary to an NSTEMI with elevated troponins as high as [address] depressions in lateral leads. Additionally, patient was also noted as having a small right-sided pulmonary embolus despite being on 2.5 Eliquis twice daily for history of previous DVT. Patient has been on heparin drip, Plavix, aspirin, Lopressor and has not had additional episodes of chest pain. Ultimately was determined that the patient would be transferred to [facility] for left heart catheterization. Home Meds and New Rx's Prescriptions: No Action vitamins A,C,Z-vwbs-pfoacf 7,160 unit- 113 mg-100 unit tablet 2 tab PO BID Rx Instructions: administer with AM and PM meals doxazosin 1 mg tablet 0.5 mg PO BID Qty: 90 3RF allopurinol 300 mg tablet 300 mg PO DAILY Qty: 90 3RF enalapril maleate 20 mg tablet 20 mg PO BID Qty: 180 3RF Eliquis 2.5 mg tablet 2.5 mg PO BID Qty: 180 3RF prednisone 1 mg tablet 4 mg PO DAILY Qty: 360 3RF omega-3 fatty acids-fish oil 1 EACH capsule 1,200 mg PO BID Discharge Instructions Activity:: Activity as Tolerated Equipment/Supplies:: No Equipment Needed Diet:: As Tolerated Discharge Orders Discharge Orders: Discharge Order (Routine); Ordered 10/30/23 Ordered By: Js Jameson DS: Summary Time Spent with Patient providing and/or coordinating discharge services: Greater than 30 minutes Status at Discharge Functional status at discharge: independent ambulation Overall status at discharge: patient is back to baseline Mental Status: mental status grossly normal Speech and Movement: speech and movement normal Mood: congruent mood Affect: normal affect Quality:SDOH Health Related Social Needs: No Data to Display Exam Narrative Exam Narrative: Well-appearing gentleman laying in bed in no acute distress, ANO x 4, heart rate regular rhythm, lungs clear to auscultation bilaterally, abdomen soft, nontender, nondistended Psych Mental Status: mental status grossly normal Speech and Movement: speech and movement normal Mood: congruent mood Affect: normal affect DS: Data Vitals/I&O Vitals and I&O: Vital Signs Temperature 99.0 F 10/30/23 11:42 Temperature Source Temporal Artery Scan 10/30/23 11:42 Pulse 66 10/30/23 11:42 Pulse Rhythm Irregular 10/30/23 08:15 Pulse 69 10/29/23 17:20 Respiratory Rate 20 10/30/23 11:42 Respiratory Effort Normal, Non-Labored 10/30/23 08:15 Respiratory Depth Normal 10/30/23 08:15 Respiratory Pattern Normal 10/30/23 08:15 Blood Pressure 137/63 10/30/23 11:42 Blood Pressure Mean 70 10/29/23 17:16 Blood Pressure Position Sitting 10/29/23 12:53 Pulse Oximetry 94 10/30/23 11:42 Oxygen Delivery Method Room Air 10/30/23 11:42 Oxygen Flow Rate 0 10/30/23 11:42 Pain Level 0 10/30/23 11:42 Intake & Output 10/29/23 10/30/23 10/30/23 17:59 05:59 17:59 Intake Total 73.5 / 83.5 80.5 / 80.5 Output Total 800 / 800 200 / 200 Balance -726.5 / -716.5 -119.5 / -119.5 Weight 180 lb Intake: IV 73.5 / 83.5 80.5 / 80.5 Output: Urine 800 / 800 200 / 200 Other: Urine Color Yellow Yellow Urine Appearance Clear Clear Clear Comment toilet insert toilet insert Data Completed and Pending Labs on day of discharge: Labs from last 24 hours 10/30/23 10/30/23 10/29/23 12:30 05:32 22:02 WBC 7.81 RBC 3.83 L Hgb 12.4 L Hct 36.5 L MCV 95 MCH 32.4 MCHC 34.0 RDW 13.6 Plt Count 152 MPV 9.7 Immature Gran % Neutrophils % Lymphocytes % Monocytes % Eosinophils % Basophils % Nucleated RBC % Absolute Neutrophils Absolute Lymphocytes Absolute Monocytes Absolute Eosinophils Absolute Basophils APTT Pending 101.4 H* 44.4 H Sodium 135 L Potassium 4.2 Chloride 101 Carbon Dioxide 23.0 Anion Gap 11.0 BUN 14 Creatinine 1.0 Est GFR (CKD-EPI 2020) 75.14 Glucose 119 H Calcium 8.7 Magnesium 1.7 L Total Bilirubin AST ALT Alkaline Phosphatase Troponin I Total Protein Albumin 10/29/23 10/29/23 15:40 13:00 WBC 6.60 RBC 3.89 L Hgb 12.6 L Hct 36.9 L MCV 95 MCH 32.4 MCHC 34.1 RDW 13.7 Plt Count 157 MPV 9.7 Immature Gran % 0.6 Neutrophils % 86.2 Lymphocytes % 8.5 Monocytes % 4.1 Eosinophils % 0.3 Basophils % 0.3 Nucleated RBC % 0.0 Absolute Neutrophils 5.69 Absolute Lymphocytes 0.56 L Absolute Monocytes 0.27 Absolute Eosinophils 0.02 Absolute Basophils 0.02 APTT 26.5 Sodium 135 L Potassium 4.2 Chloride 102 Carbon Dioxide 21.5 Anion Gap 11.5 H BUN 13 Creatinine 1.0 Est GFR (CKD-EPI 2020) 75.14 Glucose 114 H Calcium 8.8 Magnesium 1.8 Total Bilirubin 0.7 AST 22 ALT 27 Alkaline Phosphatase 183 H Troponin I 332 H* 128 H* Total Protein 7.0 Albumin 3.5 PFSH All Active Problems (Updated 10/29/23 @ 16:22 by Stefan Shi MD) Pulmonary embolism (Chronic) Acute non-ST elevation myocardial infarction (NSTEMI) (Acute) Right foot pain (Acute) Anemia (Chronic) Right hip pain (Acute) Chronic anticoagulation (Acute) Ventral hernia (Acute) Skin lesions, generalized (Acute) Liver palpable (Acute) US negative in 2006 Peripheral artery disease (Acute) asymptomatic Recurrent deep vein thrombosis (DVT) (Acute) PMR (polymyalgia rheumatica) (Acute) Family history of early CAD (Acute) Peripheral neuropathy (Acute) Medical History Neck mass (10/07/15) Peripheral vascular disease Surgical History S/P right knee arthroscopy S/P appendectomy Incision & Drainage, Abscess or Hematoma Family History Mother , age 85 Heart disease Father , age 63 Heart disease Sister Hypertension Sister No problems noted. Brother Hypertension Brother Hypertension Brother Hypertension Alcohol abuse Depression Son No problems noted. Son , age 35 Alcohol abuse Substance abuse Social History (Updated 09/10/23 @ 18:10 by Marilee Cabral) Smoking/Tobacco Use Status: Current-Occasional Tobacco Type: cigars Tobacco: How many years used: 10 Quit status: has quit before Second Hand Exposure: No Smoking risk assessment performed?: Yes Alcohol Intake: current Alcohol Intake frequency: a few times a week Alcohol type: beer Drug use: Never Substance use type: does not use Counseling given: No Counseling provided: none Caregiver/Support person: No Household members: spouse Housing: house Communication Needs: None Do you need help understanding health information?: Rarely Pets and animals: No Sexually active: No Do you think of yourself as: straight/heterosexual Current gender identity: male What is your relationship status?: How often do you talk on the phone with friends or family?: twice per week How often do you get together with friends or relatives?: decline to answer How often do you attend congregation or zoroastrianism services?: decline to answer Do you belong to any clubs or organized social groups?: yes Panel score (0-1 are the most socially isolated patients): 2 What type of physical activity do you participate in: walking Duration: 30-45 minutes/day Frequency: daily Odette/Religious: No preference Special odette needs: No Seatbelt use: sometimes Helmet use: No Drive intox or ride w/intox driver/guide: No Do you feel safe at home: Yes Do you feel safe in your relationship?: Yes Time Spent with Patient Time Spent with Patient: <45 minutes Time was spent: preparing to see the patient(eg.review tests), obtaining and/or reviewing separately otained hiistory, ordering medications,tests, procedures, referring, communicating with other health animal care worker, indepentently interpreting results, counseling the patient and care coordination
[2023-10-30] MEDS: Heparin in 0.45% NaCl 25,000 UNIT/250 ML BAG 10 UNIT IV (12:18)
[2023-10-30 12:59] LABS: PTT Activated 74.1 sec (23.6-32.8)
== END 2023-10-30 12:47 | disposition short-term general hospital (02) | DRG 280 ==
LOC: ER 17:13 → MS 17:30
PROVIDERS: Family Medicine; Admitting Provider Family Medicine; Emergency Provider Student in an Organized Health Care Education/Training Program; PCP Nurse Practitioner Family; Visit Provider Family Medicine
DX: I21.4 Non-ST elevation (NSTEMI) myocardial infarction (principal); I26.99 Other pulmonary embolism without acute cor pulmonale; I10 Essential (primary) hypertension; M35.3 Polymyalgia rheumatica; M10.9 Gout, unspecified; Z86.718 Personal history of other venous thrombosis and embolism; D64.9 Anemia, unspecified; I73.9 Peripheral vascular disease, unspecified; G62.9 Polyneuropathy, unspecified; F17.290 Nicotine dependence, other tobacco product, uncomplicated; Z79.01 Long term (current) use of anticoagulants
CPT/HCPCS: 00123; 36415; 71275; 80048; 80053; 85027; 93005; 96365; 99291; 83735; 84484; 85025; 85730; 93010; 99223; 99238; J1644; J3490

== ENCOUNTER 2023-11-19 05:16 | Outpatient (CLI) | payer MEDICARE, SELFPAY | END 2023-11-19 05:17 | disposition home or self-care (01) | PROVIDERS: PCP Nurse Practitioner Family; Visit Provider Nurse Practitioner Family | DX: C61 Malignant neoplasm of prostate (principal) | CPT/HCPCS: 36415; 84153 ==

== ENCOUNTER → 2023-11-30 09:55 | Outpatient (BNVA) | payer MEDICARE, SELFPAY | PROVIDERS: PCP Nurse Practitioner Family; Referring Provider Nurse Practitioner Family; Visit Provider Nurse Practitioner Gerontology | DX: M89.9 Disorder of bone, unspecified (principal); R97.20 Elevated prostate specific antigen [PSA] | CPT/HCPCS: 51798; 81003; 96402; 99215; J9155 ==

== ENCOUNTER → 2023-12-29 02:29 | Outpatient (CLI) | payer MEDICARE, SELFPAY ==
--- NOTE | 2023-12-29 06:45 | DI.NM_ITS ---
Exam(s) NM BONE SCAN 3 PHASE EXAM: NM BONE SCAN 3 PHASE CLINICAL HISTORY: T6 sclerosis,F/U ABNL CHEST CT,BONE PAIN,M89.8X9. TECHNIQUE: Injected Dose: 25 mCi Tc-99m MDP COMPARISON: CT ABD PELVIS WITH CONTRAST from 06/28/[address] CHEST PE CTA from 10/29/2023 FINDINGS: Perfusion phase images:: Unremarkable Blood Pool phase images: See below Delayed phase images: There is abnormal radiopharmaceutical uptake seen involving most ribs both sides as well as clavicles . Also multiple foci of increased uptake throughout numerous thoracic vertebra, not just T6. Also i n lumbar vertebrae and throughout the pelvis. This is quite impressive in the right-side of the pelv is where there is high-grade uptake seen in the acetabulum and pubic rami. There is also uptake in b oth hips as well as in the left femur. Also multiple foci in the right humerus. A few small foci in the proximal half of both femurs noted. There is also focal uptake seen in what appears to be the skull base. IMPRESSION: 1. 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
== END ==
PROVIDERS: PCP Nurse Practitioner Family; Visit Provider Nurse Practitioner Family
DX: M89.8X9 Other specified disorders of bone, unspecified site (principal)
CPT/HCPCS: 78315

== ENCOUNTER → 2024-01-14 08:51 | Outpatient (BNVA) | payer MEDICARE, SELFPAY | PROVIDERS: PCP Nurse Practitioner Family; Referring Provider Nurse Practitioner Family; Visit Provider Urology | DX: N42.89 Other specified disorders of prostate (principal); R97.20 Elevated prostate specific antigen [PSA]; M89.9 Disorder of bone, unspecified | CPT/HCPCS: 96402; J9217 ==

== ENCOUNTER 2024-02-07 07:52 | Emergency (ER) | payer MEDICARE, SELFPAY ==
[2024-02-07] VITALS (12 sets, daily range): BP systolic 120–182; BP diastolic 33–74; PULSE 71–78; RESP 20; TEMP 37.3; O2SAT 95–99
--- NOTE | 2024-02-07 08:14 | W.ED.GENAD ---
Discharge Plan Disposition Patient Disposition: Home Discharge Details Clinical Impression: Abscess of perineum Primary Care Provider: Natanael Silverio ED Provider: Santos Patino Home Meds and New Rx's Prescriptions: New sulfamethoxazole-trimethoprim [Bactrim DS] 800-160 mg tablet 1 tab PO BID Qty: 10 0RF Continued atorvastatin 80 mg tablet 80 mg PO QHS Patient Comments: per [facility] Cardiology. -hb clopidogrel [Plavix] 75 mg tablet 75 mg PO DAILY Rx Instructions: per [facility] Cardiology. -hb nitroglycerin 0.4 mg tablet, sublingual 0.4 mg sublingual Q5M PRN Rx Instructions: do not exceed 3 doses per episode per [facility] Cardiology. -hb pantoprazole 40 mg tablet,delayed release (DR/EC) 40 mg PO DAILY Rx Instructions: per [facility] Cardiology. -hb tamsulosin 0.4 mg capsule 0.4 mg PO DAILY Rx Instructions: per [facility] Cardiology. -hb vitamins A,C,A-harg-dbgwmg 7,160 unit- 113 mg-100 unit tablet 2 tab PO BID Rx Instructions: administer with AM and PM meals Eliquis 2.5 mg tablet 2.5 mg PO BID allopurinol 300 mg tablet 300 mg PO DAILY Qty: 90 3RF prednisone 1 mg tablet 4 mg PO DAILY Qty: 360 3RF metoprolol succinate 25 mg tablet extended release 24 hr 25 mg PO DAILY Qty: 90 3RF Rx Instructions: per [facility] Cardiology. -hb omega-3 fatty acids-fish oil 1 EACH capsule 1,200 mg PO BID Discharge Instructions Instructions: Abscess Incision and Drainage ED Additional Instructions: Please keep wound area clean and dry and keep packing in place until your follow-up at the surgical office. You may continue use of acetaminophen as you need for pain control. Return to the emergency department if you have any change in bowel or bladder issues, significant worsening of your condition, fever or chills. Referrals: [facility] [Provider Group] - 02/09/24 (Follow-up for reassessment and packing removal) Discharge Data Discharge Date/Time-TO BE ENTERED AT DEPARTURE: 02/07/24 12:15 HPI General Mode of arrival: ambulatory. Date/Time Provider Initiated Documentation: 02/07/24 07:56. Limitations to Documentation: no limitations. Information obtained by: patient, family and RN notes reviewed. History of Present Illness 84 year old M presents to the emergency department with the chief complaint of Perineal abscess, described as moderate and similar to prior episodes, and is localized to the genitals. Patient reports no radiation. Patient started experiencing this day(s) (4) and it has been constant. No relieving factors improve symptom(s), No exacerbating factors reported . Patient notes no other symptoms.. Patient did receive the following treatments prior to arrival, none Related Data Home Medications ?Medication ?Instructions ?Recorded ?Confirmed omega-3 fatty acids-fish oil 360 1,200 mg PO BID 11/15/13 02/07/24 mg-1,200 mg capsule vitamins A,C,Z-tssn-qrrebb 2,148 2 tab PO BID 09/01/21 02/07/24 mcg-113 mg-45 mg-17.4 mg tablet allopurinol 300 mg tablet 300 mg PO DAILY #90 tabs 05/17/23 02/07/24 prednisone 1 mg tablet 4 mg (4 x 1 mg) PO DAILY #360 tabs 08/20/23 02/07/24 atorvastatin 80 mg tablet 80 mg PO QHS 11/12/23 02/07/24 clopidogrel 75 mg tablet (Plavix) 75 mg PO DAILY 11/12/23 02/07/24 nitroglycerin 0.4 mg sublingual 0.4 mg sublingual Q5M PRN 11/12/23 02/07/24 tablet pantoprazole 40 mg tablet,delayed 40 mg PO DAILY 11/12/23 02/07/24 release tamsulosin 0.4 mg capsule 0.4 mg PO DAILY 11/12/23 02/07/24 apixaban 2.5 mg tablet (Eliquis) 2.5 mg PO BID 11/30/23 02/07/24 metoprolol succinate 25 mg 25 mg PO DAILY #90 tabs 01/05/24 02/07/24 tablet,extended release 24 hr sulfamethoxazole 800 1 tab PO BID #10 tabs 02/07/24 mg-trimethoprim 160 mg tablet (Bactrim DS) Previous Rx's ?Medication ?Instructions ?Recorded allopurinol 300 mg tablet 300 mg PO DAILY #90 tabs 05/17/23 prednisone 1 mg tablet 4 mg (4 x 1 mg) PO DAILY #360 tabs 08/20/23 metoprolol succinate 25 mg 25 mg PO DAILY #90 tabs 01/05/24 tablet,extended release 24 hr sulfamethoxazole 800 1 tab PO BID #10 tabs 02/07/24 mg-trimethoprim 160 mg tablet (Bactrim DS) Allergies Allergy/AdvReac Type Severity Reaction Status Date / Time No Known Allergies Allergy Verified 02/07/24 07:58 General Stated Complaint: Cellulitis RITCHIE: 3 Review of Systems Constitutional Constitutional: Denies chills and Denies fever(s) Gastrointestinal Gastrointestinal: Denies abdominal pain, Denies melena, Denies hematochezia, Denies nausea and Denies vomiting Genitourinary Genitourinary: Denies hematuria, Denies oliguria, Denies difficulty urinating, Denies genital lesions, Denies genital pain and Denies testicular pain Integumentary/Breasts Skin/Breast: Reports as per HPI and Reports furuncle Exam Const General: cooperative, no acute distress and not ill appearing Orientation: alert, awake and oriented x3 HENMT Mouth: moist mucous membranes Resp Effort & Inspection: normal respiratory effort, able to speak in complete sentences and no respiratory distress General: other (perineal abscess starting near the anal opening extending to the scrotum) Male General Exam: Yes normal external exam Penis: normal penis Scrotum: scrotum normal Testes: no testicular swelling and testicular tenderness on the left Neuro General: patient alert, patient awake, patient oriented x3, moves all extremities and no focal motor deficits Course Vital Signs Vital signs: Vital Signs Temperature 37.3 C 02/07/24 07:56 Pulse 76 02/07/24 07:56 Respiratory Rate 20 02/07/24 07:56 Blood Pressure 120/74 02/07/24 07:56 Pulse Oximetry 96 02/07/24 07:56 Temperature 37.3 C 02/07/24 07:56 Temperature Source Oral 02/07/24 07:56 Pulse 76 02/07/24 07:56 Respiratory Rate 20 02/07/24 07:56 Respiratory Effort Normal, Non-Labored 02/07/24 08:06 Blood Pressure 120/74 02/07/24 07:56 Blood Pressure Position Standing 02/07/24 07:56 Pulse Oximetry 96 02/07/24 07:56 Oxygen Delivery Method Room Air 02/07/24 07:56 Oxygen Flow Rate 0 02/07/24 07:56 Pain Level 9 02/07/24 07:56 Medical Decision Making Patient presenting to the emergency department for chief complaint of perineal abscess. Patient states 4 days ago he felt a slight slight lump towards the anus in a area he has had abscesses previously that needed to be drained. Abscess seem to grow in size and discomfort after using a lawn tractor on Wednesday. Patient did use some cream heat and ice but problem has continued to worsen. Patient denies fever chills, denies abdominal pain, change in bowel or bladder function. Patient does have significant past medical history of more recent presumed prostate cancer with implanted treatment, DVT and PE with ongoing treatment of Eliquis, NSTEMI with 3 stents placed. Given size and location of perineal abscess will perform CT imaging and labs. Reviewed patient's labs that show no significant leukocytosis do show a ongoing anemia which seems relatively stable. CMP is otherwise nondiagnostic except for noted elevation of alk phos urine is negative. CT scan showed abscess measurements of 3.5 cm by 2 cm wide by 3 cm deep. Starting from the perianal region going to the base of the scrotum. There also was findings of presumed metastatic prostate cancer which patient was already aware of. Given that patient is anticoagulated and size of abscess will consult surgery for further recommendation. Discussed case with surgeon who came to the emergency department evaluated the patient and performed at bedside I&D. Surgeon requested patient be placed upon Bactrim and to follow-up in the clinic on Wednesday of this week for reassessment and packing removal. Discharge instructions were given to patient along with return and follow-up precautions. After discussion of diagnosis and plan of care patient has no further needs, questions, or concerns and states clear understanding to return to the emergency department for any worsening symptoms. This documentation was generated using [employer] system, please disregard any oddities of phrase or misspellings. Imaging Data Radiologic Study: Imaging: CT Scan Radiologist's impression: Exam(s) a CT:CT abdomen & pelvis w Exam(s) CT ABDOMEN PELVIS W EXAM: CT ABDOMEN PELVIS W CLINICAL HISTORY: Perineal abscess. TECHNIQUE: Imaging Protocol: Axial computed tomography images with coronal and sagittal reformatted images were created and reviewed CONTRAST MATERIAL: Intravenous: Omnipaque-350 100cc Oral: None COMPARISON: CT ABD PELVIS WITH CONTRAST from 06/28/[address] CHEST PE CTA from 10/29/2023 FINDINGS: VISUALIZED LUNG BASES: No nodules nor pleural effusions evident. ABDOMEN: There is no ascites. LIVER: Small benign cysts in the liver is unchanged from previous. There is a small benign-appearing hypodensity lower down in the right hepatic lobe which is probably a small cyst or hemangioma. There are no obvious metastatic appearing lesions in the liver. No dilated intrahepatic ducts. GALLBLADDER/BILIARY: No obvious acute gallbladder pathology. CBD is not dilated. PANCREAS: No evidence of pancreatic mass nor dilatation of the pancreatic duct. SPLEEN: Spleen is not enlarged. No obvious intrasplenic lesions. Splenic and portal veins are patent. ADRENALS: There are no significant adrenal masses. KIDNEYS:No cysts evident. No solid renal masses. No calculi nor hydronephrosis.. ABDOMINAL AORTA: Abdominal aorta is not enlarged. LYMPH NODES:There is no retroperitoneal nor paraaortic adenopathy. ABDOMINAL WALL: No evidence of significant anterior abdominal wall nor inguinal hernia. GI: No evidence of bowel obstruction. No free air. No intra-abdominal abscess evident. PELVIS: GI: No evidence of appendicitis.There is sigmoid diverticulosis without evidence of acute diverticulitis. LYMPH NODES: There is no intrapelvic nor inguinal adenopathy. REPRODUCTIVE: Prostate is not enlarged. Seminal vesicles unremarkable. URINARY BLADDER: No calculi nor obvious masses evident there is a left sided abscess inferior to the anal canal in the medial left gluteal fold, measuring 3.5 cm AP by 2 cm wide by 3 cm deep. OSSEOUS: There is extensive osseous metastatic blastic disease involving all bones in the field of view of this study. This sclerotic metastatic disease is most confluent in the right an acetabulum and pubic rami. IMPRESSION: 1. There is a left sided abscess located just caudal to the anal canal in the medial left gluteal full, measuring 3.5 x 2.0 x 3.0 cm. There is surrounding inflammatory fat stranding evident. Induration extends to the base of the scrotal sac. There is no gas in the soft tissues evident. This is identical location to an abscess which was evident on the prior CT scan of June 2016 2. There is diffuse osseous metastatic blastic disease which was not evident on prior CT scan of 2017. 3. Prostate gland size is normal. Called by myself to ER provider Lab Data Lab results reviewed: Yes I reviewed the patient's lab results. Quality:SDOH Health Related Social Needs: No Data to Display PFSH All Active Problems (Updated 02/07/24 @ 12:07 by Santos Patino NP) Abscess of perineum (Acute) Perianal abscess (Acute) Bone lesion (Acute) Elevated PSA (Acute) Pulmonary embolism (Chronic) Acute non-ST elevation myocardial infarction (NSTEMI) (Acute) Right foot pain (Acute) Anemia (Chronic) Right hip pain (Acute) Chronic anticoagulation (Acute) Ventral hernia (Acute) Skin lesions, generalized (Acute) Liver palpable (Acute) US negative in 2006 Peripheral artery disease (Acute) asymptomatic Recurrent deep vein thrombosis (DVT) (Acute) PMR (polymyalgia rheumatica) (Acute) Family history of early CAD (Acute) Peripheral neuropathy (Acute) Medical History Neck mass (10/07/15) Peripheral vascular disease Surgical History S/P right knee arthroscopy S/P appendectomy Incision & Drainage, Abscess or Hematoma Family History Mother , age 85 Heart disease Father , age 63 Heart disease Sister Hypertension Sister No problems noted. Brother Hypertension Brother Hypertension Brother Hypertension Alcohol abuse Depression Son No problems noted. Son , age 35 Alcohol abuse Substance abuse Social History Smoking/Tobacco Use Status: Current-Occasional Tobacco Type: cigars Tobacco: How many years used: 10 Quit status: has quit before Second Hand Exposure: No Smoking risk assessment performed?: Yes Alcohol Intake: current Alcohol Intake frequency: a few times a week Alcohol type: beer Drug use: Never Substance use type: does not use Counseling given: No Counseling provided: none Caregiver/Support person: No Household members: spouse Housing: house Communication Needs: None Do you need help understanding health information?: Rarely Pets and animals: No Sexually active: No Do you think of yourself as: straight/heterosexual Current gender identity: male What is your relationship status?: How often do you talk on the phone with friends or family?: twice per week How often do you get together with friends or relatives?: decline to answer How often do you attend yarsani or congregation services?: decline to answer Do you belong to any clubs or organized social groups?: yes Panel score (0-1 are the most socially isolated patients): 2 What type of physical activity do you participate in: walking Duration: 30-45 minutes/day Frequency: daily Odette/Religious: No preference Special odette needs: No Seatbelt use: sometimes Helmet use: No Drive intox or ride w/intox delivery route driver: No Do you feel safe at home: Yes Do you feel safe in your relationship?: Yes
[2024-02-07 08:34] LABS: Abs Immature Grans 0.03 10^3/uL (0.0-0.06); Absolute Basophil Count 0.03 10^3/uL (0.0-0.2); Absolute Eosinophil Count 0.06 10^3/uL (0.0-0.7); Absolute Lymphocyte Count 0.87 10^3/uL (1.2-3.4); Absolute Monocyte Count 0.72 10^3/uL (0.1-0.8); Absolute Neutrophil Count 7.95 10^3/uL (1.2-6.7); Basophils % 0.3 %; Eosinophils % 0.6 %; HCT 34.3 % (40.0-50.0); HGB 11.7 g/dL (13.5-17.5); Immature Grans % 0.3 %; MCH 32.5 pg (27.0-33.0); MCHC 34.1 % (32.0-36.0); MCV 95 fL (80-95); MPV 9.4 fL (8.0-11.0); Monocytes % 7.5 %; Neutrophils % 82.3 %; Platelet Count 152 10^3/uL (130-400); RDW 13.8 % (11.8-14.1); RDW-SD 48.2 fL; WBC 9.66 10^3/uL (4.4-10.8)
[2024-02-07 08:55] LABS: Bilirubin Negative (Negative); Blood Negative (Negative); Clarity Clear (Clear); Glucose Negative (Negative); Ketones Negative (Negative); Leukocyte Esterase Negative (Negative); Nitrite Negative (Negative); Specific Gravity 1.015 (1.005-1.025); Urobilinogen 0.2 mg/dL (Up to 0.2)
[2024-02-07 08:58] LABS: ALT 46 U/L (16-63); AST 30 U/L (15-37); Albumin 3.2 g/dL (3.4-5.0); Alkaline Phosphatase 210 U/L (46-116); Anion Gap 5.8 mmol/L (3-11); BUN 12 mg/dL (7-18); CO2 27.2 mmol/L (21.0-32.0); Calcium 8.8 mg/dL (8.5-10.1); Chloride 103 mmol/L (98-107); Estimated GFR 74.68 (mL/min/1.73m2); Glucose 118 mg/dL (74-106); Potassium 4.3 mmol/L (3.5-5.1); Sodium 136 mmol/L (136-145); Total Protein 6.8 g/dL (6.4-8.2)
[2024-02-07] MEDS: Omnipaque 350 MG/ML 100 ML BTL IJ (09:15)
--- NOTE | 2024-02-07 09:19 | DI.CT_ITS ---
Exam(s) CT ABDOMEN PELVIS W EXAM: CT ABDOMEN PELVIS W CLINICAL HISTORY: Perineal abscess. TECHNIQUE: Imaging Protocol: Axial computed tomography images with coronal and sagittal reformatted images were created and reviewed CONTRAST MATERIAL: Intravenous: Omnipaque-350 100cc Oral: None COMPARISON: CT ABD PELVIS WITH CONTRAST from 06/28/[address] CHEST PE CTA from 10/29/2023 FINDINGS: VISUALIZED LUNG BASES: No nodules nor pleural effusions evident. ABDOMEN: There is no ascites. LIVER: Small benign cysts in the liver is unchanged from previous. There is a small benign-appearing hypodensity lower down in the right hepatic lobe which is probably a small cyst or hemangioma. Ther e are no obvious metastatic appearing lesions in the liver. No dilated intrahepatic ducts. GALLBLADDER/BILIARY: No obvious acute gallbladder pathology. CBD is not dilated. PANCREAS: No evidence of pancreatic mass nor dilatation of the pancreatic duct. SPLEEN: Spleen is not enlarged. No obvious intrasplenic lesions. Splenic and portal veins are paten t. ADRENALS: There are no significant adrenal masses. KIDNEYS:No cysts evident. No solid renal masses. No calculi nor hydronephrosis.. ABDOMINAL AORTA: Abdominal aorta is not enlarged. LYMPH NODES:There is no retroperitoneal nor paraaortic adenopathy. ABDOMINAL WALL: No evidence of significant anterior abdominal wall nor inguinal hernia. GI: No evidence of bowel obstruction. No free air. No intra-abdominal abscess evident. PELVIS: GI: No evidence of appendicitis.There is sigmoid diverticulosis without evidence of acute diverticuli tis. LYMPH NODES: There is no intrapelvic nor inguinal adenopathy. REPRODUCTIVE: Prostate is not enlarged. Seminal vesicles unremarkable. URINARY BLADDER: No calculi nor obvious masses evident there is a left sided abscess inferior to the anal canal in the medial left gluteal fold, measurin g 3.5 cm AP by 2 cm wide by 3 cm deep. OSSEOUS: There is extensive osseous metastatic blastic disease involving all bones in the field of vi ew of this study. This sclerotic metastatic disease is most confluent in the right an acetabulum and pubic rami. IMPRESSION: 1. There is a left sided abscess located just caudal to the anal canal in the medial left gluteal ful l, measuring 3.5 x 2.0 x 3.0 cm. There is surrounding inflammatory fat stranding evident. Induratio n extends to the base of the scrotal sac. There is no gas in the soft tissues evident. This is iden tical location to an abscess which was evident on the prior CT scan of June 2016 2. There is diffuse osseous metastatic blastic disease which was not evident on prior CT scan of 2017 . 3. Prostate gland size is normal. Called by myself to ER provider RADIATION DOSE DELIVERED: 320.57mGy.cm Total DLP DATA REPOSITORY: All CT scans at this facility are submitted to the National Radiology Data Registry (NRDR) Dose Index Registry (DIR) with the [employer] (ACR). RADIATION OPTIMIZATION: All CT scans at this facility use at least one of these dose optimization te chniques: automated exposure control; mA and/or kV adjustment per patient size (includes targeted exa ms where dose is matched to clinical indication); or iterative reconstruction.
--- NOTE | 2024-02-07 11:27 | W.SURGCON ---
Date of service: 02/07/24 Time of Service: 12:00 Assessment and Plan Assessment and plan (1) Perianal abscess: Status: Acute Assessment and plan: 84-year-old man with a presumed perianal abscess requiring drainage in the setting of being POSSIBLY somewhat immunocompromised. (Lupron and prednisone) He is hemodynamically stable and not toxic. The abscess was drained at the bedside but proved to be actually an old hematoma that may or may not be infected. It had foul odor but no purulence. (See procedure note for details) The patient is on antiplatelet therapy and anticoagulation because of recent cardiac stents and needs to stay on them. Overall plan: Oral antibiotics for 1 week Remove packing in 36 hours (see us in the office Wednesday) Sitz bathes as at least 3x daily for 2 weeks Some bloody drainage is expected considering anticoagulation and antiplatelet therapy. History of Present Illness Narrative: 84-year-old man has a perianal abscess. He has had 1 before about 5 or 6 years ago, maybe a little bit longer. He is not sure what causes them. He otherwise feels fine except for pain around his anal area. He recently had cardiac stents (3 months ago) and he is on anticoagulation as well as Plavix. He also takes steroids chronically. He is on Lupron for metastatic prostate cancer. He does NOT have inflammatory bowel disease or diabetes. He denies any fevers or chills. PFSH All Active Problems (Updated 02/07/24 @ 12:07 by Santos Patino NP) Abscess of perineum (Acute) Perianal abscess (Acute) Bone lesion (Acute) Elevated PSA (Acute) Pulmonary embolism (Chronic) Acute non-ST elevation myocardial infarction (NSTEMI) (Acute) Right foot pain (Acute) Anemia (Chronic) Right hip pain (Acute) Chronic anticoagulation (Acute) Ventral hernia (Acute) Skin lesions, generalized (Acute) Liver palpable (Acute) US negative in 2006 Peripheral artery disease (Acute) asymptomatic Recurrent deep vein thrombosis (DVT) (Acute) PMR (polymyalgia rheumatica) (Acute) Family history of early CAD (Acute) Peripheral neuropathy (Acute) Medical History Neck mass (10/07/15) Peripheral vascular disease Surgical History S/P right knee arthroscopy S/P appendectomy Incision & Drainage, Abscess or Hematoma Family History Mother , age 85 Heart disease Father , age 63 Heart disease Sister Hypertension Sister No problems noted. Brother Hypertension Brother Hypertension Brother Hypertension Alcohol abuse Depression Son No problems noted. Son , age 35 Alcohol abuse Substance abuse Social History Smoking/Tobacco Use Status: Current-Occasional Tobacco Type: cigars Tobacco: How many years used: 10 Quit status: has quit before Second Hand Exposure: No Smoking risk assessment performed?: Yes Alcohol Intake: current Alcohol Intake frequency: a few times a week Alcohol type: beer Drug use: Never Substance use type: does not use Counseling given: No Counseling provided: none Caregiver/Support person: No Household members: spouse Housing: house Communication Needs: None Do you need help understanding health information?: Rarely Pets and animals: No Sexually active: No Do you think of yourself as: straight/heterosexual Current gender identity: male What is your relationship status?: How often do you talk on the phone with friends or family?: twice per week How often do you get together with friends or relatives?: decline to answer How often do you attend christianity or methodist services?: decline to answer Do you belong to any clubs or organized social groups?: yes Panel score (0-1 are the most socially isolated patients): 2 What type of physical activity do you participate in: walking Duration: 30-45 minutes/day Frequency: daily Odette/Lutheran: No preference Special odette needs: No Seatbelt use: sometimes Helmet use: No Drive intox or ride w/intox jitney driver: No Do you feel safe at home: Yes Do you feel safe in your relationship?: Yes Exam Narrative Exam Narrative: General: Nontoxic, comfortable and interactive Neuro: Alert and oriented x 3 Psych: Good mood and affect, good insight and understanding into his conditions Perineum: There is a 3-4 cm area of induration that is very tender on the left side of the perineum. There is minimal erythema and no woodiness or crepitus. Results Last Vital Signs Temp 99.1 F 02/07/24 07:56 Pulse 77 02/07/24 10:01 Resp 20 02/07/24 07:56 BP 178/66 H 02/07/24 10:01 Pulse Ox 98 02/07/24 10:01 Labs 02/07/24 08:30 02/07/24 08:30 Labs: Laboratory Results - last 24 hr 02/07/24 02/07/24 08:30 08:50 WBC 9.66 RBC 3.60 L Hgb 11.7 L Hct 34.3 L MCV 95 MCH 32.5 MCHC 34.1 RDW 13.8 Plt Count 152 MPV 9.4 Immature Gran % 0.3 Neutrophils % 82.3 Lymphocytes % 9.0 Monocytes % 7.5 Eosinophils % 0.6 Basophils % 0.3 Nucleated RBC % 0.0 Absolute Neutrophils 7.95 H Absolute Lymphocytes 0.87 L Absolute Monocytes 0.72 Absolute Eosinophils 0.06 Absolute Basophils 0.03 Sodium 136 Potassium 4.3 Chloride 103 Carbon Dioxide 27.2 Anion Gap 5.8 BUN 12 Creatinine 1.0 Est GFR (CKD-EPI 2020) 74.68 Glucose 118 H Calcium 8.8 Total Bilirubin 1.00 AST 30 ALT 46 Alkaline Phosphatase 210 H Total Protein 6.8 Albumin 3.2 L Urine Color Yellow Urine Clarity Clear Urine pH 6.0 Ur Specific [place] 1.015 Urine Protein Negative Urine Ketones Negative Urine Blood Negative Urine Nitrite Negative Urine Bilirubin Negative Urine Urobilinogen 0.2 Ur Leukocyte Esterase Negative Urine Glucose Negative Procedures Other Procedure Description/Findings: Procedures performed: 1. Incision and drainage of perianal abscess Pre-op diagnosis: Perianal abscess Postoperative diagnosis: Infected hematoma Surgeon: Shelbi Ramirez Anesthesia: Local Frame And Scrap Crusher: None Indication for procedure: 84-year-old man with a history of perianal abscess presents with recurrent pain in the perineum for about 5 days. No fevers. Palpable abscess of perineum as well as proven on CT scan. He is on anticoagulation and Plavix for recent cardiac stents. FINDINGS: Abscess cavity filled with old blood and foul odor but no actual purulence. Specimens: 1. Cultures were taken Complications: None Blood loss: 5 cc Urine output: Not measured Implants/drains: Quarter-inch packing left in place PROCEDURE IN DETAIL: Patient gave written consent and was in agreement with the indications, the likely benefits as well as the potential risks of surgical intervention. A brief timeout was performed and mom were in agreement I started the procedure. Local anesthetic was injected in the skin of the perineum. A cruciate incision was made in the skin overlying the abscess cavity and it was easily entered. Cultures were taken. There was foul odor however the fluid expressed was old hemorrhagic blood and not purulent. Packing was placed and an ABD pad for absorption. Patient tolerated the procedure well. The sponge, instruments and sharps counts were correct x3 at the end of the procedure.
[2024-02-07] MEDS: Sulfameth/Trimeth DS TAB 1 TAB PO (12:09)
--- NOTE | 2024-02-07 12:13 | NUR.NOTE ---
Referral faxed to [facility] for packing removal, reassessment by surgeon. Nursing Note:
== END 2024-02-07 12:15 | disposition home or self-care (01) ==
PROVIDERS: Emergency Provider Nurse Practitioner Family; PCP Nurse Practitioner Family
DX: L98.9 Disorder of the skin and subcutaneous tissue, unspecified (principal); L02.215 Cutaneous abscess of perineum; C61 Malignant neoplasm of prostate; D64.9 Anemia, unspecified; Z86.718 Personal history of other venous thrombosis and embolism; Z79.01 Long term (current) use of anticoagulants; Z86.711 Personal history of pulmonary embolism; I25.2 Old myocardial infarction; Z95.5 Presence of coronary angioplasty implant and graft; Z79.02 Long term (current) use of antithrombotics/antiplatelets
CPT/HCPCS: 00123; 10060; 36415; 80053; 96374; 99285; 74177; 81003; 85025; 87070; 87205; 99284; J0131; J2003; J2004; J3490

== ENCOUNTER → 2024-02-09 13:16 | Outpatient (BNVA) | payer MEDICARE, SELFPAY | PROVIDERS: PCP Nurse Practitioner Family; Referring Provider Nurse Practitioner Family; Visit Provider Student in an Organized Health Care Education/Training Program | DX: L02.215 Cutaneous abscess of perineum (principal) | CPT/HCPCS: 99213 ==

== ENCOUNTER → 2024-02-16 14:13 | Outpatient (BNVA) | payer MEDICARE, SELFPAY | PROVIDERS: PCP Nurse Practitioner Family; Referring Provider Nurse Practitioner Family; Visit Provider Nurse Practitioner Gerontology | DX: M89.9 Disorder of bone, unspecified (principal); R97.20 Elevated prostate specific antigen [PSA] | CPT/HCPCS: 51720; J9217 ==

== ENCOUNTER 2024-02-22 08:15 | Outpatient (CLI) | payer MEDICARE, SELFPAY | END 2024-02-22 08:16 | disposition home or self-care (01) | LOC: DI.CARD 08:16 | PROVIDERS: PCP Nurse Practitioner Family; Visit Provider Internal Medicine Cardiovascular Disease | CPT/HCPCS: 93010 ==

== ENCOUNTER 2024-03-16 02:02 | Outpatient (CLI) | payer MEDICARE, SELFPAY ==
[2024-03-16 23:00] LABS: PSA, Diagnostic 137.5 ng/mL (<=6.5)
== END 2024-03-16 02:03 | disposition home or self-care (01) ==
LOC: LBO 02:02
PROVIDERS: PCP Nurse Practitioner Family; Visit Provider Nurse Practitioner Gerontology
DX: R97.20 Elevated prostate specific antigen [PSA] (principal); M89.9 Disorder of bone, unspecified
CPT/HCPCS: 36415; 84153

== ENCOUNTER 2024-03-27 08:07 | Outpatient (CLI) | payer MEDICARE, SELFPAY ==
--- NOTE | 2024-03-27 08:00 | RT.EKG_ITS ---
APPROVED REPORT Exam: Resting ECG Reason for Exam: PR Patient Location: O HR:62 bpm ECG Measurements Heart Rate 62 AXIS CO 170 P 57 QRSd 101 QRS -30 QT 416 T 72 QTc 423 Conclusion Sinus rhythm...normal P axis, V-rate 50- 99 Left axis deviation...QRS axis (-30,-90) Low voltage, extremity leads...all extremity leads <0.5mV
== END 2024-03-27 08:08 | disposition home or self-care (01) ==
LOC: DI.CARD 08:10
PROVIDERS: PCP Nurse Practitioner Family; Visit Provider Internal Medicine Cardiovascular Disease
DX: I21.4 Non-ST elevation (NSTEMI) myocardial infarction (principal)
CPT/HCPCS: 93010

== ENCOUNTER → 2024-03-27 11:26 | Outpatient (BNVA) | payer MEDICARE, SELFPAY | PROVIDERS: PCP Nurse Practitioner Family; Referring Provider Nurse Practitioner Family; Visit Provider Internal Medicine Cardiovascular Disease | DX: I25.10 Atherosclerotic heart disease of native coronary artery without angina pectoris (principal); C61 Malignant neoplasm of prostate | CPT/HCPCS: 93005; 99203 ==

== ENCOUNTER → 2024-03-29 10:57 | Outpatient (BNVA) | payer MEDICARE, SELFPAY | PROVIDERS: PCP Nurse Practitioner Family; Visit Provider Nurse Practitioner Gerontology | DX: R97.20 Elevated prostate specific antigen [PSA] (principal); M89.9 Disorder of bone, unspecified; R22.43 Localized swelling, mass and lump, lower limb, bilateral; R42 Dizziness and giddiness; C61 Malignant neoplasm of prostate | CPT/HCPCS: 96402; J9217 ==

== ENCOUNTER 2024-04-30 12:07 | Emergency (ER) | payer MEDICARE, SELFPAY ==
[2024-04-30] VITALS (9 sets, daily range): BP systolic 180–205; BP diastolic 51–74; PULSE 60–71; RESP 13–18; TEMP 36.7; O2SAT 98–99
--- NOTE | 2024-04-30 11:45 | RT.EKG_ITS ---
APPROVED REPORT Exam: Resting ECG Reason for Exam: Chest Pain Patient Location: E HR:69 bpm ECG Measurements Heart Rate 69 AXIS MT 179 P 67 QRSd 105 QRS -1 QT 421 T 61 QTc 450 Conclusion Sinus rhythm...normal P axis, V-rate 60- 99 Low voltage, extremity leads...all extremity leads <0.5mV
--- NOTE | 2024-04-30 12:20 | NUR.NOTE ---
Nursing Note: this RN and [facility], RN both visualized fent 75mcg patch on right upper chest of patient on arrival to department
[2024-04-30 12:51] LABS: Abs Immature Grans 0.03 10^3/uL (0.0-0.06); Absolute Basophil Count 0.02 10^3/uL (0.0-0.2); Absolute Eosinophil Count 0.07 10^3/uL (0.0-0.7); Absolute Lymphocyte Count 0.65 10^3/uL (1.2-3.4); Absolute Neutrophil Count 6.27 10^3/uL (1.2-6.7); Basophils % 0.3 %; Eosinophils % 0.9 %; HCT 32.9 % (40.0-50.0); HGB 11.2 g/dL (13.5-17.5); Immature Grans % 0.4 %; Lymphocytes % 8.7 %; MCH 32.5 pg (27.0-33.0); MCV 95 fL (80-95); MPV 9.4 fL (8.0-11.0); Monocytes % 5.4 %; Neutrophils % 84.3 %; Platelet Count 160 10^3/uL (130-400); RBC 3.45 10^6/uL (4.36-5.78); RDW 12.9 % (11.8-14.1); RDW-SD 45.3 fL; WBC 7.44 10^3/uL (4.4-10.8)
[2024-04-30 13:17] LABS: ALT 33 U/L (16-63); AST 26 U/L (15-37); Albumin 3.2 g/dL (3.4-5.0); Alkaline Phosphatase 134 U/L (46-116); Anion Gap 6.7 mmol/L (3-11); BUN 13 mg/dL (7-18); Bilirubin, Total 0.58 mg/dL (0.2-1.0); CO2 27.3 mmol/L (21.0-32.0); Chloride 104 mmol/L (98-107); Estimated GFR 74.68 (mL/min/1.73m2); Glucose 134 mg/dL (74-106); Magnesium 1.9 mg/dL (1.8-2.4); NT-proBNP 1716 pg/mL (<300); Potassium 4.3 mmol/L (3.5-5.1); Sodium 138 mmol/L (136-145); Total Protein 6.6 g/dL (6.4-8.2); Troponin I 17 ng/L (<or=76)
[2024-04-30 13:25] LABS: D-Dimer 912 ng/mlFEU (<500)
--- NOTE | 2024-04-30 13:30 | DI.CT_ITS ---
Exam(s) CT CHEST PE CTA EXAM: CT CHEST PE CTA CLINICAL HISTORY: CHEST PAIN, ELEVATED DDIMER. TECHNIQUE: Imaging Protocol: Axial CT angiography was performed with multi-slice acquisition and mu lti-planar reconstructions as well as axial, coronal and sagittal MIP reconstructions. Computer aided detection (CAD) was utilized. CONTRAST MATERIAL: Intravenous: Omnipaque 350 Contrast volume:100 ml COMPARISON: CT CT CHEST PE CTA from 10/29/2023 FINDINGS: Pulmonary Arteries: No significant change in the small nonocclusive pulmonary embolus seen in the pro ximal portion of the posterior basal right lower lobe pulmonary artery segmental branch. No new embo li. Mediastinum and Kami: No dominant adenopathy or fluid collection. Pulmonary parenchyma: No consolidation or dominant measurable mass. Pleura: No effusion or pneumothorax. Heart: The heart is mildly dilated. Severe coronary artery calcifications are seen. No right heart strain. Aorta: Thoracic aorta non-dilated. No dissection. Atherosclerotic calcification. Upper abdomen: No acute findings. Bones: Numerous scattered sclerotic bony foci again noted, with significant increase in size and numb er from prior, consistent with metastatic disease. Degenerative changes also present. Tubes, Catheters, and Lines: None Soft tissues: Unremarkable. IMPRESSION: Stable small nonocclusive pulmonary embolus in a right lower lobe segmental branch. Widespread sclerotic bony metastases again noted, increased in extent from prior. RADIATION DOSE DELIVERED: Total DLP DATA REPOSITORY: All CT scans at this facility are submitted to the National Radiology Data Registry (NRDR) Dose Index Registry (DIR) with the [employer] (ACR). RADIATION OPTIMIZATION: All CT scans at this facility use at least one of these dose optimization te chniques: automated exposure control; mA and/or kV adjustment per patient size (includes targeted exa ms where dose is matched to clinical indication); or iterative reconstruction.
[2024-04-30] MEDS: Omnipaque 350 MG/ML 100 ML BTL IJ (13:56)
[2024-04-30] MEDS: Normal Saline - Diluent 50 ML VIAL IJ (13:58)
[2024-04-30 14:03] LABS: Troponin I 19 ng/L (<or=76)
--- NOTE | 2024-04-30 14:52 | DI.VRAD_ITS ---
PROCEDURE INFORMATION: Exam: CTA Chest With Contrast Exam date and time: 04/30/2024 2:00 PM Age: 84 years old Clinical indication: Other: Chest pain, elevated ddimer TECHNIQUE: Imaging protocol: Computed tomographic angiography of the chest with contrast. Exam focused on the arteries. 3D rendering (Not supervised by radiologist): MIP and/or 3D reconstructed images were created by the technologist. Contrast material: OMNIPAQUE 350; Contrast volume: 100 ml; Contrast route: INTRAVENOUS (IV); COMPARISON: CT CHEST PE CTA 10/29/2023 2:34 PM FINDINGS: Pulmonary arteries: Normal. No pulmonary emboli. Aorta: Normal caliber thoracic aorta with calcified atherosclerosis. Lungs: Small near occlusive pulmonary thrombo embolus in the proximal segmental right lower lobe pulmonary artery, series 10, image 94, appears unchanged compared with October 29, 2023. No other pulmonary emboli. Pleural spaces: Unremarkable. No pneumothorax. No pleural effusion. Heart: Heart size within normal limits with prominent left atrium. No right heart strain Coronary arteries: Coronary artery calcification. Lymph nodes: Unremarkable. No enlarged lymph nodes. Kidneys: Nonspecific bilateral perinephric stranding. Bones/joints: Bridging osteophytes of lower thoracic spine. Multiple scattered sclerotic osseous lesions, most compatible with metastases. Soft tissues: Unremarkable. IMPRESSION: 1. Small near occlusive pulmonary thrombo embolus in the proximal segmental right lower lobe pulmonary artery, probably unchanged compared with October 29, 2023. No other pulmonary emboli. 2. Innumerable scattered sclerotic osseous lesions, most compatible with metastases. Dictated and Authenticated by: Zuly Higgins MD. Ordering:BEN Andersen MD
--- NOTE | 2024-04-30 14:59 | ED.GENADUL_ITS ---
Discharge Plan Disposition Patient Disposition: Home Condition: Stable Discharge Details Clinical Impression: Chest pain Primary Care Provider: Natanael Silverio ED Provider: Nathaly Lerma Home Meds and New Rx's Prescriptions: Continued clopidogrel [Plavix] 75 mg tablet 75 mg PO DAILY Rx Instructions: per [facility] -[facility] nitroglycerin 0.4 mg tablet, sublingual 0.4 mg sublingual Q5M PRN Rx Instructions: do not exceed 3 doses per episode per [facility] -[facility] tamsulosin 0.4 mg capsule 0.4 mg PO DAILY Rx Instructions: per [facility] -[facility] atorvastatin 80 mg tablet 40 mg PO .COMPLEX Patient Comments: per [facility] -[facility] Rx Instructions: 40 mg orally 2 days/week; PreserVision AREDS 4,296 mcg-226 mg-90 mg capsule 2 cap PO ONCE sennosides [senna] 8.6 mg tablet 8.6 - 17.2 mg PO BID PRN (Reason: constipation) Qty: 60 0RF fentanyl 75 mcg/hr patch 72 hour 1 patch transdermal Q72H MDD 1 patch Qty: 10 0RF Rx Instructions: for cancer-related pain hydromorphone 2 mg tablet 2 mg PO Q4H MDD 6 tabs PRN (Reason: pain) Qty: 30 0RF Rx Instructions: for cancer related pain allopurinol 300 mg tablet 300 mg PO DAILY Qty: 90 3RF prednisone 1 mg tablet 4 mg PO DAILY Qty: 360 3RF metoprolol succinate 25 mg tablet extended release 24 hr 25 mg PO DAILY Qty: 90 3RF Rx Instructions: per [facility] -[facility] Eliquis 2.5 mg tablet 2.5 mg PO BID Qty: 180 3RF omega-3 fatty acids-fish oil 1 EACH capsule 1,200 mg PO BID Discharge Instructions Additional Instructions: Start taking metoprolol 50 tomorrow morning your doctor has an appointment 2 PM tomorrow, call first thing in the morning and see if you are able to be reevaluated tomorrow at 2 Your test today are reassuring Please return earlier should you have new or worsening complaints including return of pain Referrals: Natanael Silverio, [employer] ADMINISTRATOR [Primary Care Provider] - 1 day Discharge Data Discharge Date/Time-TO BE ENTERED AT DEPARTURE: 04/30/24 15:50 HPI General Date/Time Provider Initiated Documentation: 04/30/24 12:19 . HPI Narrative: Is 84-year-old male who presents with report of feeling off this morning. He states he had a all feeling with stress to 1 loose stool episode and took some nitro, feeling improved. He is post stent placement, he received 4 stents at [facility] approximately 6 months ago. He denies any current chest discomfort, fever, chills, shortness of breath, difficulty breathing. He denies any new calf pain or swelling. He is otherwise felt well. He does have a complicated medical history including that of metastatic prostate cancer recently started on fentanyl 2 or 3 months ago to help with his pain in his spine. He has not really been having any chest discomfort and did not cardiac rehab secondary to physical limitation after stent placement. He has followed up with cardiology most recently in the past month and did not have any acute concerning findings at that time. Denies history of pulmonary embolism. Is taking all of his prescribed medications at home including that of Eliquis. Related Data Home Medications ?Medication ?Instructions ?Recorded ?Confirmed omega-3 fatty acids-fish oil 360 1,200 mg PO BID 11/15/13 05/01/24 mg-1,200 mg capsule allopurinol 300 mg tablet 300 mg PO DAILY #90 tabs 05/17/23 05/01/24 prednisone 1 mg tablet 4 mg (4 x 1 mg) PO DAILY #360 tabs 08/20/23 05/01/24 clopidogrel 75 mg tablet (Plavix) 75 mg PO DAILY 11/12/23 05/01/24 nitroglycerin 0.4 mg sublingual 0.4 mg sublingual Q5M PRN 11/12/23 05/01/24 tablet tamsulosin 0.4 mg capsule 0.4 mg PO DAILY 11/12/23 05/01/24 metoprolol succinate 25 mg 25 mg PO DAILY #90 tabs 01/05/24 05/01/24 tablet,extended release 24 hr apixaban 2.5 mg tablet (Eliquis) 2.5 mg PO BID #180 tabs 02/09/24 05/01/24 vitamins A,C,T-zxzr-seepfz 4,296 2 cap PO ONCE 03/03/24 05/01/24 mcg-226 mg-90 mg capsule (PreserVision AREDS) sennosides 8.6 mg tablet (senna) 8.6 - 17.2 mg (1 - 2 x 8.6 mg) PO 03/16/24 05/01/24 BID PRN constipation #60 tabs atorvastatin 80 mg tablet 40 mg PO .COMPLEX 03/27/24 05/01/24 fentanyl 75 mcg/hr transdermal 1 patch transdermal Q72H #10 ea 04/14/24 05/01/24 patch hydromorphone 2 mg tablet 2 mg PO Q4H PRN pain #30 tabs 04/14/24 05/01/24 Previous Rx's ?Medication ?Instructions ?Recorded allopurinol 300 mg tablet 300 mg PO DAILY #90 tabs 05/17/23 prednisone 1 mg tablet 4 mg (4 x 1 mg) PO DAILY #360 tabs 08/20/23 metoprolol succinate 25 mg 25 mg PO DAILY #90 tabs 01/05/24 tablet,extended release 24 hr apixaban 2.5 mg tablet (Eliquis) 2.5 mg PO BID #180 tabs 02/09/24 sennosides 8.6 mg tablet (senna) 8.6 - 17.2 mg (1 - 2 x 8.6 mg) PO 03/16/24 BID PRN constipation #60 tabs fentanyl 75 mcg/hr transdermal 1 patch transdermal Q72H #10 ea 04/14/24 patch hydromorphone 2 mg tablet 2 mg PO Q4H PRN pain #30 tabs 04/14/24 Allergies Allergy/AdvReac Type Severity Reaction Status Date / Time No Known Allergies Allergy Verified 05/01/24 14:08 General Stated Complaint: Chest Pain RITCHIE: 3 Exam Narrative Exam Narrative: This 84-year-old male presents alert and oriented, no acute distress, lungs clear to auscultation, cardiac rate rhythm regular, no abdominal tenderness, no peripheral edema, no calf swelling or tenderness distal pulses intact Course Vital Signs Vital signs: Vital Signs Temperature 36.7 C 04/30/24 12:08 Pulse 69 04/30/24 12:08 Respiratory Rate 18 04/30/24 12:08 Blood Pressure 196/66 H 04/30/24 12:08 Pulse Oximetry 99 04/30/24 12:08 Temperature 36.7 C 04/30/24 12:08 Temperature Source Oral 04/30/24 12:08 Pulse 60 04/30/24 13:46 Pulse 60 04/30/24 13:46 Respiratory Rate 13 04/30/24 13:46 Respiratory Effort Normal, Non-Labored 04/30/24 14:58 Blood Pressure 180/53 H 04/30/24 13:46 Blood Pressure Mean 99 04/30/24 13:46 Pulse Oximetry 99 04/30/24 12:08 Lab/Test Results Lab/Test Results: Laboratory Tests Range/Units 04/30/24 04/30/24 12:25 13:38 WBC (4.4-10.8) 10^3/uL 7.44 RBC (4.36-5.78) 10^6/uL 3.45 L Hgb (13.5-17.5) g/dL 11.2 L Hct (40.0-50.0) % 32.9 L MCV (80-95) fL 95 MCH (27.0-33.0) pg 32.5 MCHC (32.0-36.0) % 34.0 RDW (11.8-14.1) % 12.9 Plt Count (130-400) 10^3/uL 160 MPV (8.0-11.0) fL 9.4 Immature Gran % % 0.4 Neutrophils % % 84.3 Lymphocytes % % 8.7 Monocytes % % 5.4 Eosinophils % % 0.9 Basophils % % 0.3 Nucleated RBC % (0.0-0.3) % 0.0 Absolute Neutrophils (1.2-6.7) 10^3/uL 6.27 Absolute Lymphocytes (1.2-3.4) 10^3/uL 0.65 L Absolute Monocytes (0.1-0.8) 10^3/uL 0.40 Absolute Eosinophils (0.0-0.7) 10^3/uL 0.07 Absolute Basophils (0.0-0.2) 10^3/uL 0.02 D-Dimer (<500) ng/mlFEU 912 H Sodium (136-145) mmol/L 138 Potassium (3.5-5.1) mmol/L 4.3 Chloride (98-107) mmol/L 104 Carbon Dioxide (21.0-32.0) mmol/L 27.3 Anion Gap (3-11) mmol/L 6.7 BUN (7-18) mg/dL 13 Creatinine (0.70-1.30) mg/dL 1.0 Est GFR (CKD-EPI 2020) (mL/min/1.73m2) 74.68 Glucose (74-106) mg/dL 134 H Calcium (8.5-10.1) mg/dL 9.0 Magnesium (1.8-2.4) mg/dL 1.9 Total Bilirubin (0.2-1.0) mg/dL 0.58 AST (15-37) U/L 26 ALT (16-63) U/L 33 Alkaline Phosphatase (46-116) U/L 134 H Troponin I (<or=76) ng/L 17 19 NT-Pro-B Natriuret Pep (<300) pg/mL 1716 H Total Protein (6.4-8.2) g/dL 6.6 Albumin (3.4-5.0) g/dL 3.2 L Medical Decision Making 84-year-old male presenting with complex medical history including that of prostate cancer and recent stent placement approximately 6 months prior to arrival at [facility]. Today he is not endorse chest pain but had a vague lightheadedness sensation and was concerned regarding his symptoms. He took a nitroglycerin which resolved his symptoms but presents here secondary to his multiple comorbidities for assessment. I did order CTA secondary to vague lightheadedness and shortness of breath, CTA PE with small occlusive PE unchanged from October 2023. At this time patient is pain-free his CTA shows chronic pulmonary embolism per radiology interpretation and my review. Patient has had 2 troponins that do not show evidence of acute abnormality and EKG is reassuring. Patient would like to be discharged home and feels comfor table doing so. His blood pressure is elevated, I will increase his metoprolol to 50 and he will see his primary care physician at 2 PM tomorrow. I did touch base with the on-call provider, Nina Duenas and states Natanael Silverio has 2 PM tomorrow and is likely have capacity to see patient at this time. Quality:SDOH Health Related Social Needs: No Data to Display PFSH All Active Problems (Updated 04/30/24 @ 15:33 by SAL Rodrigez) Chest pain (Acute) Coronary artery disease (Chronic) Dizziness (Acute) Lightheaded (Acute) Palliative care patient (Acute) Cancer related pain (Acute) Prostate cancer (Chronic) Perianal abscess (Acute) Bone lesion (Acute) Elevated PSA (Acute) Pulmonary embolism (Chronic) Acute non-ST elevation myocardial infarction (NSTEMI) (Acute) Right foot pain (Acute) Anemia (Chronic) Right hip pain (Acute) Chronic anticoagulation (Acute) Ventral hernia (Acute) Skin lesions, generalized (Acute) Liver palpable (Acute) US negative in 2006 Peripheral artery disease (Acute) asymptomatic Recurrent deep vein thrombosis (DVT) (Acute) PMR (polymyalgia rheumatica) (Acute) Family history of early CAD (Acute) Peripheral neuropathy (Acute) Medical History Neck mass (10/07/15) Peripheral vascular disease Surgical History S/P right knee arthroscopy S/P appendectomy Incision & Drainage, Abscess or Hematoma Family History Mother , age 85 Heart disease Father , age 63 Heart disease Sister Hypertension Sister No problems noted. Brother Hypertension Brother Hypertension Brother Hypertension Alcohol abuse Depression Son No problems noted. Son , age 35 Alcohol abuse Substance abuse Social History Smoking/Tobacco Use Status: Current-Occasional Tobacco Type: cigars Tobacco: How many years used: 10 Quit status: has quit before Second Hand Exposure: No Smoking risk assessment performed?: Yes Alcohol Intake: current Alcohol Intake frequency: a few times a week Alcohol type: beer Drug use: Never Substance use type: does not use Counseling given: No Counseling provided: none Caregiver/Support person: No Household members: spouse Housing: house Communication Needs: None Do you need help understanding health information?: Rarely Pets and animals: No Sexually active: No Do you think of yourself as: straight/heterosexual Current gender identity: male What is your relationship status?: How often do you talk on the phone with friends or family?: twice per week How often do you get together with friends or relatives?: decline to answer How often do you attend hindu or gnosticist services?: decline to answer Do you belong to any clubs or organized social groups?: yes Panel score (0-1 are the most socially isolated patients): 2 What type of physical activity do you participate in: walking Duration: 30-45 minutes/day Frequency: daily Odette/Adventism: No preference Special odette needs: No Seatbelt use: sometimes Helmet use: No Drive intox or ride w/intox batch mixing truck driver: No Do you feel safe at home: Yes Do you feel safe in your relationship?: Yes PAWSS Have you Been Recently Intoxicated or Drunk Within the Last 30 days?: No Have you Ever Experienced Previous Episodes of Alcohol Withdrawal?: No Have you ever Experienced Withdrawal Seizures?: No Have you ever Experienced Delirium Tremens(DT)s?: No Have you ever undergone Alcohol Rehabilitation Treatment (i.e, inpt ot outpatient treatment programs)?: No Have you ever Experienced Blackouts?: No Have you ever Combined Alcohol with other Downers within the last 90 days?: No Have you ever Combined Alcohol with any other Substance of Abuse during the last 90 days?: No Result: 0
== END 2024-04-30 15:50 | disposition home or self-care (01) ==
PROVIDERS: Emergency Provider Physician Assistant; PCP Nurse Practitioner Family
DX: R07.9 Chest pain, unspecified (principal); I25.10 Atherosclerotic heart disease of native coronary artery without angina pectoris; I25.2 Old myocardial infarction; C61 Malignant neoplasm of prostate; C79.51 Secondary malignant neoplasm of bone; Z86.711 Personal history of pulmonary embolism; F17.290 Nicotine dependence, other tobacco product, uncomplicated; Z79.01 Long term (current) use of anticoagulants; Z79.02 Long term (current) use of antithrombotics/antiplatelets; Z79.899 Other long term (current) drug therapy
CPT/HCPCS: 36415; 71275; 80053; 93005; 99285; 83735; 83880; 84484; 85025; 85379; 93010; 99284; J3490

== ENCOUNTER → 2024-05-05 15:19 | Outpatient (BNVA) | payer MEDICARE, SELFPAY | PROVIDERS: PCP Nurse Practitioner Family; Referring Provider Nurse Practitioner Family; Visit Provider Urology | DX: C61 Malignant neoplasm of prostate (principal); R97.20 Elevated prostate specific antigen [PSA]; M89.9 Disorder of bone, unspecified | CPT/HCPCS: 96402; J9217 ==

== ENCOUNTER 2024-05-13 18:50 | Emergency (ER) | payer MEDICARE, SELFPAY ==
[2024-05-13] VITALS (25 sets, daily range): BP systolic 165–233; BP diastolic 48–77; PULSE 56–74; RESP 11–19; TEMP 36.4; O2SAT 97–99
--- NOTE | 2024-05-13 18:45 | RT.EKG_ITS ---
APPROVED REPORT Exam: Resting ECG Reason for Exam: high BP Patient Location: E HR:69 bpm ECG Measurements Heart Rate 69 AXIS TN 171 P 67 QRSd 98 QRS 0 QT 489 T 70 QTc 511 Conclusion Sinus rhythm...normal P axis, V-rate 60- 99 Atrial premature complex...SV complex w/ short R-R interval Low voltage, extremity leads...all extremity leads <0.5mV Prolonged QT interval...QTc >500mS Narrow complex normal sinus rhythm at a rate of 69. Left axis deviation no signs of LVH. TN within normal limits. Prolonged QTc at 511 ms worse compared to prior. Prior dated earlier this month. No acute injury pattern. Low voltage limb leads.
--- NOTE | 2024-05-13 19:03 | W.ED.GENAD ---
Discharge Plan Disposition Patient Disposition: Home Discharge Details Clinical Impression: Generalized weakness Primary Care Provider: Natanael Silverio ED Provider: River Madrid Billings Meds and New Rx's Prescriptions: Continued clopidogrel [Plavix] 75 mg tablet 75 mg PO DAILY Rx Instructions: per [facility] Cardiology. -hb nitroglycerin 0.4 mg tablet, sublingual 0.4 mg sublingual Q5M PRN Rx Instructions: do not exceed 3 doses per episode per [facility] Cardiology. -hb tamsulosin 0.4 mg capsule 0.4 mg PO DAILY Rx Instructions: per [facility] Cardiology. -hb atorvastatin 80 mg tablet 40 mg PO .COMPLEX Patient Comments: per [facility] Cardiology. -hb Rx Instructions: 40 mg orally 2 days/week; fentanyl 75 mcg/hr patch 72 hour 1 patch transdermal Q72H MDD 1 patch Qty: 10 0RF Rx Instructions: for cancer-related pain PreserVision AREDS 4,296 mcg-226 mg-90 mg capsule 2 cap PO ONCE sennosides [senna] 8.6 mg tablet 8.6 - 17.2 mg PO BID PRN (Reason: constipation) Qty: 60 0RF hydromorphone 2 mg tablet 2 mg PO Q4H MDD 6 tabs PRN (Reason: pain) Qty: 30 0RF Rx Instructions: for cancer related pain prednisone 1 mg tablet 4 mg PO DAILY Qty: 360 3RF metoprolol succinate 25 mg tablet extended release 24 hr 25 mg PO DAILY Qty: 90 3RF Rx Instructions: per [facility] Cardiology. -hb Eliquis 2.5 mg tablet 2.5 mg PO BID Qty: 180 3RF allopurinol 300 mg tablet 300 mg PO DAILY Qty: 90 3RF omega-3 fatty acids-fish oil 1 EACH capsule 1,200 mg PO BID Discharge Instructions Additional Instructions: You are seen in the emergency department for your weakness. Your blood work shows your kidneys are working well. You have no signs of a heart attack nor pneumonia. As we discussed please continue taking your previously prescribed medications. Please follow-up next week with your primary care provider as you will likely benefit from a repeat check for blood pressure and assessment of your electrolytes. If you develop chest pain or if you pass out please return to the emergency department. HPI General Date/Time Provider Initiated Documentation: 05/13/24 18:53. HPI Narrative: MDM This is an overall well-appearing afebrile and not tachycardic 84-year-old male with recent stenting and weakness concerning for the possibility of ACS for which patient will undergo troponin testing. No pain out of proportion to suggest necrotizing soft tissue infection. No fevers nor cough to suggest pneumonia however will obtain chest x-ray. No nausea nor vomiting to suggest increased risk for esophageal rupture. No syncope to suggest dysrhythmia however will monitor patient on telemetry. No black nor bloody stools so my suspicion is low for GI bleed. No rash to chest to suggest zoster. No tearing chest pain to suggest increased risk for aortic dissection. No headache nor visual changes to suggest giant cell arteritis. Patient has no acute neurological deficits so I am not suspicious for CVA and I do not feel that the patient requires an MRI nor would he be a tPA candidate. I considered PE however the patient is not short of breath and is on apixaban so my suspicion is low for PE so I did not send a D-dimer. His ECG was notable for prolonged QTc at 511 ms for which we will obtain a magnesium level. Patient has not had prolonged QTc in the past. No syncope to suggest increased risk for torsades. No QTc prolonging medications on the patient's med list. No tonic-clonic activity to suggest seizure to have notification for EEG. No nuchal rigidity to suggest meningitis and no indication for lumbar puncture. Will assess for endorgan damage given elevated blood pressure. 7:55 PM Basic metabolic panel showing very mild anion gap. No CAMERON. Mild hyperglycemia but normal bicarbonate??not consistent with DKA. Initial reassuring troponin less than the 99th percentile. Will repeat to obtain delta. 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 This corresponds to previously seen fractures from CT scan earlier this year. 8:38 PM Patient had a reassuring normal magnesium. Repeat ECG showing no QTc prolongation. 8:47 PM Reassuring repeat troponin with normal delta not meeting acute injury threshold for which patient was discharged with an empiric trial of expectant outpatient management. Patient I discussed that he should return to the ED if he passed out if he developed nausea or vomiting that did not stop or if he developed chest pain. I advised PCP follow-up next week. He understood his return indications and was discharged with empiric trial of expectant outpatient management. Blood pressure proved considerably without intervention in the ED. I advised the patient to touch base with his primary care provider concerning his elevated blood pressure readings. I also advised that he keep a journal of daily blood pressure readings. He had no signs of endorgan damage. 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 Per my independent interpretation EKG shows: Narrow complex normal sinus rhythm at a rate of 69. Left axis deviation no signs of LVH. VA within normal limits. Prolonged QTc at 511 ms worse compared to prior. Prior dated earlier this month. No acute injury pattern. Low voltage limb leads. 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 Patient reports that he had 4 stents placed in October. He has been feeling anxious today and had a lot of family over his house. He took 1 nitro tablet for 5 minutes prior to arrival because he did not feel well. He was not having chest pain. He denies nausea vomiting headache dizziness shortness of breath fevers chills lightheadedness and syncope. No recent falls. No recent med changes. Exam General: Elderly-appearing in no acute distress speaking in complete sentences. Head: Normocephalic, atraumatic. Eye: Extraocular eye movements intact. No conjunctival injection. No scleral icterus. Ear, nose, mouth, throat: Grossly normal inspection. Normal voice, handling secretions normally. Neck: Trachea midline. Cardiovascular: Well-perfused distal extremities. Regular rate and rhythm Respiratory: Nonlabored respiration. Clear lungs bilaterally Gastrointestinal: Nondistended abdomen.Soft nontender. No rebound. No guarding. Musculoskeletal: No significant lower extremity pitting edema. Moving all 4 extremities spontaneously. Skin: Normal for age and race, grossly normal temperature and turgor. No acute rash. Neurologic: Alert and appropriate, no apparent acute deficits. Cranial nerves II through XII intact grossly. 5 out of 5 bilateral upper lower extremity strength. GCS 15. Psychiatric: Mood and manner are appropriate. Grooming and personal hygiene are appropriate. Related Data Home Medications ?Medication ?Instructions ?Recorded ?Confirmed omega-3 fatty acids-fish oil 360 1,200 mg PO BID 11/15/13 05/13/24 mg-1,200 mg capsule prednisone 1 mg tablet 4 mg (4 x 1 mg) PO DAILY #360 tabs 08/20/23 05/13/24 clopidogrel 75 mg tablet (Plavix) 75 mg PO DAILY 11/12/23 05/13/24 nitroglycerin 0.4 mg sublingual 0.4 mg sublingual Q5M PRN 11/12/23 05/13/24 tablet tamsulosin 0.4 mg capsule 0.4 mg PO DAILY 11/12/23 05/13/24 metoprolol succinate 25 mg 25 mg PO DAILY #90 tabs 01/05/24 05/13/24 tablet,extended release 24 hr apixaban 2.5 mg tablet (Eliquis) 2.5 mg PO BID #180 tabs 02/09/24 05/13/24 vitamins A,C,H-akwi-uypegh 4,296 2 cap PO ONCE 03/03/24 05/13/24 mcg-226 mg-90 mg capsule (PreserVision AREDS) sennosides 8.6 mg tablet (senna) 8.6 - 17.2 mg (1 - 2 x 8.6 mg) PO 03/16/24 05/13/24 BID PRN constipation #60 tabs atorvastatin 80 mg tablet 40 mg PO .COMPLEX 03/27/24 05/13/24 hydromorphone 2 mg tablet 2 mg PO Q4H PRN pain #30 tabs 04/14/24 05/13/24 allopurinol 300 mg tablet 300 mg PO DAILY #90 tabs 05/03/24 05/13/24 fentanyl 75 mcg/hr transdermal 1 patch transdermal Q72H #10 ea 05/05/24 05/13/24 patch Previous Rx's ?Medication ?Instructions ?Recorded prednisone 1 mg tablet 4 mg (4 x 1 mg) PO DAILY #360 tabs 08/20/23 metoprolol succinate 25 mg 25 mg PO DAILY #90 tabs 01/05/24 tablet,extended release 24 hr apixaban 2.5 mg tablet (Eliquis) 2.5 mg PO BID #180 tabs 02/09/24 sennosides 8.6 mg tablet (senna) 8.6 - 17.2 mg (1 - 2 x 8.6 mg) PO 03/16/24 BID PRN constipation #60 tabs hydromorphone 2 mg tablet 2 mg PO Q4H PRN pain #30 tabs 04/14/24 allopurinol 300 mg tablet 300 mg PO DAILY #90 tabs 05/03/24 fentanyl 75 mcg/hr transdermal 1 patch transdermal Q72H #10 ea 05/05/24 patch Allergies Allergy/AdvReac Type Severity Reaction Status Date / Time No Known Allergies Allergy Verified 05/01/24 14:08 General Stated Complaint: Anxiety RITCHIE: 3 Course Vital Signs Vital signs: Vital Signs Pulse 74 05/13/24 18:54 Respiratory Rate 16 05/13/24 18:54 Blood Pressure 223/73 H 05/13/24 18:54 Pulse Oximetry 98 05/13/24 18:54 Pulse 74 05/13/24 18:54 Respiratory Rate 16 05/13/24 19:00 Respiratory Effort Normal 05/13/24 19:00 Respiratory Depth Normal 05/13/24 19:00 Respiratory Pattern Normal 05/13/24 19:00 Blood Pressure 223/73 H 05/13/24 18:54 Blood Pressure Position Supine 05/13/24 18:54 Pulse Oximetry 98 05/13/24 18:54 Oxygen Delivery Method Venti Mask 05/13/24 18:54 Oxygen Flow Rate 0 05/13/24 18:54 Pain Level 0 05/13/24 18:54 Medical Decision Making Quality:SDOH Health Related Social Needs: No Data to Display PFSH All Active Problems (Updated 05/13/24 @ 19:56 by River Madrid MD) Generalized weakness (Acute) Chest pain (Acute) Coronary artery disease (Chronic) Dizziness (Acute) Lightheaded (Acute) Palliative care patient (Acute) Cancer related pain (Acute) Prostate cancer (Chronic) Perianal abscess (Acute) Bone lesion (Acute) Elevated PSA (Acute) Pulmonary embolism (Chronic) Acute non-ST elevation myocardial infarction (NSTEMI) (Acute) Right foot pain (Acute) Anemia (Chronic) Right hip pain (Acute) Chronic anticoagulation (Acute) Ventral hernia (Acute) Skin lesions, generalized (Acute) Liver palpable (Acute) US negative in 2006 Peripheral artery disease (Acute) asymptomatic Recurrent deep vein thrombosis (DVT) (Acute) PMR (polymyalgia rheumatica) (Acute) Family history of early CAD (Acute) Peripheral neuropathy (Acute) Medical History Neck mass (10/07/15) Peripheral vascular disease Surgical History S/P right knee arthroscopy S/P appendectomy Incision & Drainage, Abscess or Hematoma Family History Mother , age 85 Heart disease Father , age 63 Heart disease Sister Hypertension Sister No problems noted. Brother Hypertension Brother Hypertension Brother Hypertension Alcohol abuse Depression Son No problems noted. Son , age 35 Alcohol abuse Substance abuse Social History Smoking/Tobacco Use Status: Current-Occasional Tobacco Type: cigars Tobacco: How many years used: 10 Quit status: has quit before Second Hand Exposure: No Smoking risk assessment performed?: Yes Alcohol Intake: current Alcohol Intake frequency: a few times a week Alcohol type: beer Drug use: Never Substance use type: does not use Counseling given: No Counseling provided: none Caregiver/Support person: No Household members: spouse Housing: house Communication Needs: None Do you need help understanding health information?: Rarely Pets and animals: No Sexually active: No Do you think of yourself as: straight/heterosexual Current gender identity: male What is your relationship status?: How often do you talk on the phone with friends or family?: twice per week How often do you get together with friends or relatives?: decline to answer How often do you attend judaism or hinduism services?: decline to answer Do you belong to any clubs or organized social groups?: yes Panel score (0-1 are the most socially isolated patients): 2 What type of physical activity do you participate in: walking Duration: 30-45 minutes/day Frequency: daily Odette/Tenriism: No preference Special odette needs: No Seatbelt use: sometimes Helmet use: No Drive intox or ride w/intox local company hazmat driver: No Do you feel safe at home: Yes Do you feel safe in your relationship?: Yes
--- NOTE | 2024-05-13 19:08 | DI.RAD_ITS ---
Exam(s) XR PORTABLE CHEST AP EXAM: XR PORTABLE CHEST AP CLINICAL HISTORY: Chest pain TECHNIQUE: 2D digital imaging was performed of the chest. One image was obtained. An AP view was ob tained. COMPARISON: CR CHEST 2 VIEWS PA,LAT from 10/28/[address] CHEST PE CTA from 04/30/2024 FINDINGS: MEDIASTINUM: Normal. HEART: Heart is at the upper limits of normal in size. PULMONARY VASCULATURE: Normal. LUNGS: There is hyperinflation of the lungs. No focal consolidating infiltrates are seen. PLEURAL SPACE: No pleural effusion or pneumothorax. BONE:There are sclerotic foci seen in the bones consistent with known osseous metastatic disease. OTHER FINDINGS:Normal. IMPRESSION: No acute pulmonary findings. DATA REPOSITORY: RADIATION DOSE DELIVERED:
[2024-05-13 19:45] LABS: Anion Gap 11.9 mmol/L (3-11); BUN 8 mg/dL (7-18); CO2 25.1 mmol/L (21.0-32.0); CREATININE 0.9 mg/dL (0.70-1.30); Chloride 99 mmol/L (98-107); Estimated GFR 84.74 (mL/min/1.73m2); Glucose 109 mg/dL (74-106); Sodium 136 mmol/L (136-145); Troponin I 27 ng/L (<or=76)
--- NOTE | 2024-05-13 20:00 | DI.VRAD_ITS ---
PROCEDURE INFORMATION: Exam: XR Chest Exam date and time: 05/13/2024 7:17 PM Age: 84 years old Clinical indication: Other: Unspecified; Patient HX: Chest pain TECHNIQUE: Imaging protocol: Radiologic exam of the chest. Views: 1 view. COMPARISON: CT CHEST PE CTA 04/30/2024 2:00 PM FINDINGS: Lungs: Unremarkable. No consolidation. Pleural spaces: Unremarkable. No pleural effusion. No pneumothorax. Heart/Mediastinum: There is cardiomegaly. Mild cardiomegaly. Bones/joints: There are osteo sclerotic changes involving left ribs of concern for metastatic disease. IMPRESSION: Bone metastases. No additional acute abnormality seen. Dictated and Authenticated by: Nelia Contreras MD. Ordering:DAREN Holman MD
--- NOTE | 2024-05-13 20:15 | RT.EKG_ITS ---
APPROVED REPORT Exam: Resting ECG Reason for Exam: Prolonged QT Patient Location: E HR:66 bpm ECG Measurements Heart Rate 66 AXIS NV 180 P 61 QRSd 94 QRS -24 QT 438 T 74 QTc 459 Conclusion Sinus rhythm...normal P axis, V-rate 60- 99 Low voltage, extremity leads...all extremity leads <0.5mV No STEMI. No complex normal sinus rhythm low voltage NV and QTc within normal limits.
[2024-05-13 20:36] LABS: Magnesium 1.8 mg/dL (1.8-2.4)
[2024-05-13 20:45] LABS: Troponin I 29 ng/L (<or=76)
== END 2024-05-13 21:00 | disposition home or self-care (01) ==
PROVIDERS: Emergency Provider Emergency Medicine; PCP Nurse Practitioner Family
DX: R53.1 Weakness (principal); F41.9 Anxiety disorder, unspecified; R94.31 Abnormal electrocardiogram [ECG] [EKG]; I25.10 Atherosclerotic heart disease of native coronary artery without angina pectoris; I25.2 Old myocardial infarction; F17.290 Nicotine dependence, other tobacco product, uncomplicated; Z79.01 Long term (current) use of anticoagulants; Z79.02 Long term (current) use of antithrombotics/antiplatelets; Z95.5 Presence of coronary angioplasty implant and graft
CPT/HCPCS: 36415; 80048; 93005; 99285; 71045; 83735; 84484; 93010; 99284

== ENCOUNTER → 2024-06-08 09:29 | Outpatient (BNVA) | payer MEDICARE, SELFPAY | PROVIDERS: PCP Nurse Practitioner Family; Visit Provider Nurse Practitioner Gerontology | DX: R97.20 Elevated prostate specific antigen [PSA] (principal); M89.9 Disorder of bone, unspecified | CPT/HCPCS: 96402; J9217 ==

== ENCOUNTER 2024-07-04 02:26 | Outpatient (CLI) | payer MEDICARE, SELFPAY ==
[2024-07-05 11:11] LABS: PSA, Diagnostic 256.5 ng/mL (<=6.5)
== END 2024-07-04 02:27 | disposition home or self-care (01) ==
LOC: LBO 02:26
PROVIDERS: PCP Nurse Practitioner Family; Visit Provider Nurse Practitioner Gerontology
DX: C61 Malignant neoplasm of prostate (principal); R97.20 Elevated prostate specific antigen [PSA]
CPT/HCPCS: 36415; 84153

== ENCOUNTER → 2024-07-11 13:19 | Outpatient (BNVA) | payer MEDICARE, SELFPAY | PROVIDERS: PCP Nurse Practitioner Family; Referring Provider Nurse Practitioner Family; Visit Provider Nurse Practitioner Gerontology | DX: M62.81 Muscle weakness (generalized) (principal); C61 Malignant neoplasm of prostate | CPT/HCPCS: 96402; 99213; J9217 ==

== ENCOUNTER → 2024-07-11 13:28 | Outpatient (BNVA) | payer MEDICARE, SELFPAY | PROVIDERS: PCP Nurse Practitioner Family; Referring Provider Nurse Practitioner Family; Visit Provider Internal Medicine Cardiovascular Disease | DX: I25.10 Atherosclerotic heart disease of native coronary artery without angina pectoris (principal); Z79.01 Long term (current) use of anticoagulants | CPT/HCPCS: 99213 ==

== ENCOUNTER → 2024-08-21 15:53 | Outpatient (BNVA) | payer MEDICARE, SELFPAY | PROVIDERS: PCP Nurse Practitioner Family; Referring Provider Nurse Practitioner Family; Visit Provider Urology | DX: C61 Malignant neoplasm of prostate (principal) | CPT/HCPCS: 99213 ==

== ENCOUNTER → 2024-09-26 13:43 | Outpatient (BNVA) | payer MEDICARE, SELFPAY | PROVIDERS: PCP Nurse Practitioner Family; Referring Provider Nurse Practitioner Family; Visit Provider Urology | DX: C61 Malignant neoplasm of prostate (principal) | CPT/HCPCS: 99213 ==

== ENCOUNTER → 2024-11-21 07:43 | Outpatient (BNVA) | payer OTHER, SELFPAY | PROVIDERS: PCP Nurse Practitioner Family; Referring Provider Nurse Practitioner Family; Visit Provider Urology | DX: C61 Malignant neoplasm of prostate (principal); C79.51 Secondary malignant neoplasm of bone | CPT/HCPCS: 99213 ==

== ENCOUNTER → 2024-12-26 11:13 | Outpatient (BNVA) | payer OTHER, SELFPAY | PROVIDERS: PCP Nurse Practitioner Family; Referring Provider Nurse Practitioner Family; Visit Provider Urology | DX: C61 Malignant neoplasm of prostate (principal); C79.51 Secondary malignant neoplasm of bone | CPT/HCPCS: 99213 ==

== ENCOUNTER → 2025-01-16 07:38 | Outpatient (BNVA) | payer OTHER, SELFPAY | PROVIDERS: PCP Nurse Practitioner Family; Referring Provider Nurse Practitioner Family; Visit Provider Urology | DX: C61 Malignant neoplasm of prostate (principal); C79.51 Secondary malignant neoplasm of bone; Z51.5 Encounter for palliative care | CPT/HCPCS: 99213 ==